=== PATIENT | female | born 1960 | race Two or more races ===

== ENCOUNTER 2019-01-30 14:20 | Emergency (ER) | payer MEDICAID, OTHER ==
[~2019-01-30] VITALS: Ht 152.4 cm; Wt 64.4 kg
[2019-01-30 15:12] LABS: Basophils # (auto) 0.1 uL; Basophils % (auto) 1.7 % (0.0-2.0); Eosinophils # (auto) 0.1 uL; Eosinophils % (auto) 1.8 % (0.0-7.0); Hematocrit 43.3 % (36.0-46.0); Hemoglobin 14.3 g/dL (12.2-16.2); Lymphocytes # (auto) 2.3 uL; Lymphocytes % (auto) 34.3 % (10.0-50.0); Mean Corpuscular Hemoglobin 30.7 pg (28.0-32.0); Mean Corpuscular Hgb Conc. 32.9 g/dL (32.0-36.0); Mean Corpuscular Volume 93.4 fL (80.0-100.0); Monocytes # (auto) 0.4 uL; Monocytes % (auto) 5.5 % (0.0-12.0); Neutrophils # (auto) 3.8 uL; Neutrophils % (auto) 56.7 % (37.0-80.0); Nucleated Red Blood Cells % 0.3 %; Platelet Count (auto) 312 10^3/uL (140-450); Red Blood Cells 4.64 10^6/uL (4.0-5.20); Red Cell Distribution Width 14.6 % (11.8-14.3); White Blood Cell 6.8 10^3/uL (4.4-10.8)
[2019-01-30 15:14] LABS: Urine Bacteria NONE SEEN /hpf (None Seen); Urine Blood TRACE /uL (Negative); Urine Mucus FEW (None Seen); Urine Specific Gravity 1.018 (1.001-1.035); Urine WBC 1 /hpf (0 - 5)
[2019-01-30 15:28] LABS: Albumin 4.3 g/dL (3.4-5.0); Anion Gap 6 (5-15); Blood Urea Nitrogen 10 mg/dL (7-18); Calcium 9.2 mg/dL (8.5-10.1); Carbon Dioxide 26 mmol/L (21-32); Chloride 110 mmol/L (98-107); Glucose 94 mg/dL (74-106); Potassium 4.4 mmol/L (3.5-5.1); Sodium 142 mmol/L (136-145)
[2019-01-30 15:34] LABS: Alanine Aminotransferase 48 U/L (13-56); Alkaline Phosphatase 50 U/L (45-117); Aspartate Aminotransferase 27 U/L (15-37); BUN/Creatinine Ratio 16.1; Bilirubin, Total 0.2 mg/dL (0.2-1.0); GFR African American 127 mL/min; GFR Non-African American 105 mL/min; Total Protein 8.3 g/dL (6.4-8.2)
[2019-01-30] MEDS ORDERED: MECLIZINE HCL 25 MG TAB PO ONE (15:45)
[2019-01-30 17:03] VITALS: BP 124/75
== END 2019-01-30 17:10 | disposition home or self-care (01) ==
LOC: ER 14:28
DX: I10 Essential (primary) hypertension (principal); Z98.51 Tubal ligation status
CPT/HCPCS: 36415; 71046; 80053; 81001; 83735; 84443; 84484; 85025; 93005; 99284; J8597

== ENCOUNTER 2020-06-02 11:32 | Emergency (ER) | payer MEDICAID ==
[~2020-06-02] VITALS: Ht 152.4 cm; Wt 69.4 kg
[2020-06-02 11:49] VITALS: BP 140/79
[2020-06-02] MEDS ORDERED: PANTOPRAZOLE 40 MG/10 ML VIAL INJ IV STA (11:49)
[2020-06-02] MEDS ORDERED: SODIUM CHLORIDE 0.9% 500 ML IVB ONE (11:49)
[2020-06-02] MEDS ORDERED: MORPHINE SULF INJ 2 MG/ML SYRINGE 1ML IV ONE (12:00)
[2020-06-02] MEDS ORDERED: ONDANSETRON HCL 4 MG/2 ML VIAL IV ONE (12:00)
[2020-06-02 12:21] LABS: Basophils # (auto) 0 10 ^3/uL (0-0.2); Basophils % (auto) 0.6 % (0.0-2.0); Eosinophils # (auto) 0.1 10 ^3/uL (0-0.8); Hematocrit 40.5 % (36.0-46.0); Hemoglobin 13.6 g/dL (12.2-16.2); Lymphocytes # (auto) 1.4 10 ^3/uL (0.4-5.4); Lymphocytes % (auto) 19.5 % (10.0-50.0); Mean Corpuscular Hemoglobin 30.9 pg (28.0-32.0); Mean Corpuscular Hgb Conc. 33.5 g/dL (32.0-36.0); Mean Corpuscular Volume 92.1 fL (80.0-100.0); Monocytes # (auto) 0.3 10 ^3/uL (0-1.3); Monocytes % (auto) 4.4 % (0.0-12.0); Neutrophils # (auto) 5.4 10 ^3/uL (1.6-8.6); Neutrophils % (auto) 74.5 % (37.0-80.0); Nucleated Red Blood Cells % 0.1 %; Platelet Count (auto) 267 10^3/uL (140-450); Red Blood Cells 4.39 10^6/uL (4.0-5.20); Red Cell Distribution Width 15.2 % (11.8-14.3); White Blood Cell 7.3 10^3/uL (4.4-10.8)
[2020-06-02 12:37] LABS: Albumin 4.1 g/dL (3.4-5.0); Amylase 38 U/L (25-115); Anion Gap 5 (5-15); Carbon Dioxide 28 mmol/L (21-32); Chloride 104 mmol/L (98-107); Potassium 3.7 mmol/L (3.5-5.1); Sodium 137 mmol/L (136-145)
[2020-06-02 12:44] LABS: Alanine Aminotransferase 34 U/L (13-56); Alkaline Phosphatase 40 U/L (45-117); Aspartate Aminotransferase 20 U/L (15-37); BUN/Creatinine Ratio 16.4; Bilirubin, Total 0.3 mg/dL (0.2-1.0); Blood Urea Nitrogen 12 mg/dL (7-18); GFR African American 105 mL/min; GFR Non-African American 86 mL/min; Glucose 135 mg/dL (74-106); Lipase 105 U/L (73-393); Total Protein 7.8 g/dL (6.4-8.2)
[2020-06-02 16:36] LABS: Urine Bacteria NONE SEEN /hpf (None Seen); Urine Blood Negative /uL (Negative); Urine Mucus FEW (None Seen); Urine Specific Gravity 1.019 (1.001-1.035); Urine WBC 1 /hpf (0 - 5)
[2020-06-02] MEDS ORDERED: HYDROcodone-ACET 5/325MG TAB ONE (20:10)
[2020-06-02] MEDS ORDERED: ONDANSETRON ODT 4 MG TAB PO ONE ×2 (20:10→20:30)
[2020-06-02] MEDS ORDERED: PANTOPRAZOLE 40 MG TAB PO ONE ×2 (20:11→20:30)
[2020-06-02] MEDS ORDERED: HYDROcodone-ACET 5/325MG TAB PO ONE (20:30)
== END 2020-06-02 20:25 | disposition home or self-care (01) ==
LOC: ER 11:32
DX: N20.0 Calculus of kidney (principal)
CPT/HCPCS: 36415; 74176; 80053; 81001; 82150; 83690; 84484; 85025; 93005; 99285; Q0162

== ENCOUNTER 2025-01-21 04:54 | Inpatient (IN) | payer OTHER, MEDICAID ==
[~2025-01-21] VITALS: Ht 152.4 cm; Wt 69.0 kg
--- NOTE | 2025-01-21 05:19 | ED.PDOC ---
GI ASSESSMENT HPI Comments 64-year-old female presents in the ED chief complaint abdominal pain. Patient was states pain started two days ago at night after eating dinner she describes pain as sharp and squeezing in nature mid and right lower abdomen 9/10 on pain scale. Related symptoms of nausea and fevers. Patient states she took Tylenol [id number] with relief in fever but not pain. 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 Family History Family History: Family hx of Cancer Social History Smoker: Non-Smoker Alcohol: Denies ETOH Use Drugs: Denies Drug Use Lives In: Home Constitutional: reports: fever; denies: chills, diaphoresis, fatigue, malaise, sweats, weakness, others EENTM: denies: blurred vision, double vision, ear bleeding, ear discharge, ear drainage, ear pain, ear ringing, eye pain, eye redness, hearing loss, mouth pain, mouth swelling, nasal discharge, nose bleeding, nose congestion, nose pain, photophobia, tearing, throat pain, throat swelling, voice changes, others Respiratory: denies: cough, hemoptysis, orthopnea, SOB at rest, shortness of breath, SOB with excertion, stridor, wheezing, others Cardiovascular: denies: chest pain, dizzy spells, diaphoresis, Dyspnea on exertion, edema, irregular heart beat, left arm pain, lightheadedness, palpitations, PND, syncope, others Gastrointestinal: reports: abdominal pain, nausea; denies: abdomen distended, blood streaked bowels, constipated, diarrhea, dysphagia, difficulty swallowing, hematemesis, melena, poor appetite, poor fluid intake, rectal bleeding, rectal pain, vomiting, others Genitourinary: denies: abnormal vagina bleeding, burning, dyspareunia, dysuria, flank pain, frequency, hematuria, incontinence, pain, , vagina discharge, urgency, others Neurological: denies: dizziness, fainting, headache, left sided numbness, left sided weakness, numbness, paresthesia, pre-existing deficit, right sided numbness, right sided weakness, seizure, speech problems, tingling, tremors, weakness, others Musculoskeletal: denies: back pain, gout, joint pain, joint swelling, muscle pain, muscle stiffness, neck pain, others Integumetry: denies: bruises, change in color, change in hair/nails, dryness, laceration, lesions, lumps, rash, wounds, others Allergic/Immunocompromised: denies: Difficulty Healing, Frequent Infections, Hives, Itching, others Hematologic/Lymphatic: denies: anemia, blood clots, easy bleeding, easy bruising, swollen glands, others Endocrine: denies: excessive hunger, excessive sweating, excessive thirst, excessive urination, flushing, intolerance to cold, intolerance to heat, unexplained weight gain, unexplained weight loss, others Psychiatric: denies: anxiety, bipolar disorder, depression, hopeless, panic disorder, schizophrenia, sleepless, suicidal, others Physical Exam General Appearance: No Apparent Distress, Normal HEENT: Normal ENT Inspection, Pharynx Normal, TMs Normal Neck: Full Range of Motion, Non-Tender Respiratory: Lungs Clear, No Respiratory Distress, Normal Breath Sounds Cardiovascular: No Edema, No JVD, No Murmur, No Gallop, Normal Peripheral Pulses, Regular Rate/Rhythm Breast Exam: Deferred Gastrointestinal: No Organomegaly, No Pulsatile Mass, Normal Bowel Sounds, Soft, Tenderness (Moderate tenderness palpated over right in mid lower quadrant without rebound tenderness. No guarding) Genitalia: Deferred Pelvic: Deferred Rectal: Deferred Extremities: No calf tenderness, Normal capillary refill, Normal inspection, Normal range of motion, Non-tender, No pedal edema Musculoskeletal : Apperance: Normal Neurologic: Alert, transport rn II-XII nml as Tested, No Motor Deficits, Normal Affect, Normal Mood, No Sensory Deficits Cerebellar Function: Normal Reflexes: Normal Skin: Dry, Normal Color, Warm Lymphatic: No Adenopathy Was a procedure done? Was a procedure done?: No GI differential Dx Differential Diagnosis: Bowel Obstruction, Cholangitis, Cholecystitis, Constipation, Gastritis/PUD, Gastroenteritis, Ischemic Bowel, UTI X-Ray, Labs, Meds, VS Vital Signs Date Time Temp Pulse Resp B/P (MAP) Pulse Ox O2 Delivery O2 Flow Rate FiO2 01/21/25 08:22 98.1 86 18 144/73 (96) 94 98.1 01/21/25 08:22 86 18 94 Room Air* 0 01/21/25 08:15 98.9 85 18 126/81 (96) 95 98.9 01/21/25 06:49 86 16 127/80 01/21/25 06:15 91 15 95 Room Air* 0 21 01/21/25 06:15 98.4 95 15 129/78 (95) 95 98.4 01/21/25 05:54 76 17 187/77 01/21/25 05:21 98.4 91 16 129/78 (95) 95 98.4 Lab Test 01/21/25 05:31 01/21/25 05:00 Range/Units White Blood Count 15.7 H 4.4-10.8 10^3/uL Red Blood Count 4.46 4.0-5.20 10^6/uL Hemoglobin 13.7 12.2-16.2 g/dL Hematocrit 40.7 36.0-46.0 % Mean Corpuscular Volume 91.3 80.0-100.0 fL Mean Corpuscular Hemoglobin 30.6 28.0-32.0 pg Mean Corpuscular Hemoglobin Concent 33.6 32.0-36.0 g/dL Red Cell Distribution Width 15.4 H 11.8-14.3 % Platelet Count 263 140-450 10^3/uL Mean Platelet Volume 8.8 6.9-10.8 fL Neutrophils (%) (Auto) 83.7 H 37.0-80.0 % Lymphocytes (%) (Auto) 12.4 10.0-50.0 % Monocytes (%) (Auto) 3.5 0.0-12.0 % Eosinophils (%) (Auto) 0.1 0.0-7.0 % Basophils (%) (Auto) 0.3 0.0-2.0 % Neutrophils # (Auto) 13.1 H 1.6-8.6 10 ^3/uL Lymphocytes # (Auto) 1.9 0.4-5.4 10 ^3/uL Monocytes # (Auto) 0.5 0-1.3 10 ^3/uL Eosinophils # (Auto) 0 0-0.8 10 ^3/uL Basophils # (Auto) 0 0-0.2 10 ^3/uL Nucleated Red Blood Cells 0.0 % Erythrocyte Sedimentation Rate 54 H 0-20 mm/hr Sodium Level 137 136-145 mmol/L Potassium Level 3.7 3.5-5.1 mmol/L Chloride Level 102 98-107 mmol/L Carbon Dioxide Level 26 20-31 mmol/L Anion Gap 9 5-15 Blood Urea Nitrogen 9 9-23 mg/dL Creatinine 0.80 0.550-1.02 mg/dL Glomerular Filtration Rate Calc 82 >90 mL/min BUN/Creatinine Ratio 11.3 10.0-20.0 Serum Glucose 198 H 74-106 mg/dL Hemoglobin A1c 7.7 H <5.7 % A1C Calcium Level 9.9 8.7-10.4 mg/dL Total Bilirubin 0.9 0.2-1.0 mg/dL Aspartate Amino Transferase (AST) 24 13-40 U/L Alanine Aminotransferase (ALT) 26 7-40 U/L Alkaline Phosphatase 48 46-116 U/L Total Protein 7.7 5.7-8.2 g/dL Albumin 5.0 H 3.2-4.8 g/dL Lipase 32 12-53 U/L Carcinoembryonic Antigen 0.80 <=5.0 ng/mL Urine Color Light-orange Yellow Urine Clarity Clear Clear Urine pH 5.5 5.0-9.0 Urine Specific [place] 1.034 1.001-1.035 Urine Protein 1+ H Negative Urine Ketones 2+ H Negative Urine Blood 1+ H Negative /uL Urine Nitrite Negative Negative Urine Bilirubin Negative Negative Urine Urobilinogen 2 H Negative mg/dL Urine Leukocyte Esterase 1+ Negative /uL Urine RBC 11 0 - 4 /hpf Urine Microscopic WBC 9 H 0-5 /HPF Urine Squamous Epithelial Cells Few <5 /hpf Urine Bacteria None seen None Seen /hpf Urine Mucus Few None Seen Urine Glucose Trace Normal mg/dL Current Medications Medications (Trade) Dose Ordered Sig/Theodore Route Start Time Stop Time Status Last Admin Sodium Chloride 1,000 ml @ 150 mls/hr Q6H40M ONCE IV 01/21/25 05:15 01/21/25 11:54 DC 01/21/25 05:56 Morphine Sulfate 1 mg ONCE ONCE IV 01/21/25 05:15 01/21/25 05:16 DC 01/21/25 05:54 Cefepime HCl 50 ml @ 12.5 mls/hr ONCE ONCE IV 01/21/25 06:30 01/21/25 10:29 DC 01/21/25 07:29 Metronidazole 100 ml @ 100 mls/hr ONCE ONCE IV 01/21/25 06:30 01/21/25 07:29 DC 01/21/25 06:28 Sodium Chloride 1,000 ml @ 1,000 mls/hr Q1H ONCE IV 01/21/25 06:30 01/21/25 07:29 DC 01/21/25 06:26 Ondansetron HCl (Zofran) 4 mg ONCE ONCE IV 01/21/25 06:30 01/21/25 06:31 DC 01/21/25 06:53 X-Ray, Labs, Meds, VS Comment IMAGING: CT ABDOMEN 1. Significant fat stranding and wall thickening of the terminal ileum suggesting terminal ileitis. Underlying mass can not be excluded. The appendix contains air and measures up to 5 mm in diameter. 2. Hepatomegaly with fatty infiltration. LABS: CBC CMP LIPASE UA MEDICATIONS: MORPHINE 1 MG IV PUSH PLAN: PATIENT TO BE ADMITTED FOR TERMINAL ILEITIS. PATIENT PLACED FOR HOSPITALIST, RECOMMEND GI CONSULT, UNDERLYING MASS CAN NOT BE EXCLUDED UNDER CT. Time of 1ST Reevaluation: 05:16 Reevaluation 1ST: Unchanged Patient Education/Counseling: Diagnosis, Treatment, Prognosis, Need For Follow Up Family Education/Counseling: No Family Present Departure 1 Departure Time of Disposition: 06:04 Impression: Primary Impression: Terminal ileitis of small intestine Qualified Codes: K50.00 - Crohn's disease of small intestine without complications Disposition: ADMITTED INPATIENT Condition: Stable Discharged With: Self Critical Care Note Critical Care Time?: No Stability Stability form required: SUE Shell Jan 21, 2025 05:19
[2025-01-21 05:28] LABS: Urine Bacteria None Seen /hpf (None Seen)
[2025-01-21 05:49] LABS: Urine Blood 1+ /uL (Negative); Urine Clarity Clear (Clear); Urine Color Light-Orange (Yellow); Urine Mucus FEW (None Seen); Urine Protein, UAD 1+ (Negative); Urine Specific Gravity 1.034 (1.001-1.035); Urine Squamous Epithelial Cell FEW /hpf (<5); Urine Urobilinogen 2 mg/dL (Negative); Urine WBC 9 /HPF (0-5); Urine pH 5.5 (5.0-9.0)
[2025-01-21] MEDS: MORPHINE SULFATE INJ 2 MG/ml SYRG IV ONE (05:54)
[2025-01-21] MEDS: SODIUM CHLORIDE 0.9% 1,000 ML IV ONE ×2 (05:56→06:26)
--- NOTE | 2025-01-21 05:56 | DVH ---
EXAM: CT Abdomen and Pelvis Without Intravenous Contrast CLINICAL INDICATION: rlq pain TECHNIQUE: Axial computed tomography images of the abdomen and pelvis without intravenous contrast. This CT exam was performed using one or more of the following dose reduction techniques: automated exposure control, adjustment of the mA and/or kV according to patient size, and/or use of iterative r econstruction technique. CONTRAST: COMPARISON: CT ABD PELVIS WO CONTRAST on DOS: 06/02/20 FINDINGS: LUNG BASES: Unremarkable. No mass. No consolidation. ABDOMEN: LIVER: Hepatomegaly with fatty infiltration. GALLBLADDER AND BILE DUCTS: Unremarkable. No calcified stones. No ductal dilation. PANCREAS: Unremarkable. No ductal dilation. SPLEEN: Unremarkable. No splenomegaly. ADRENALS: Unremarkable. No mass. KIDNEYS AND URETERS: Right nephrolithiasis without hydronephrosis. STOMACH AND BOWEL: Significant fat stranding and wall thickening of the terminal ileum suggesting t erminal ileitis. Underlying mass can not be excluded. The appendix contains air and measures up to 5 mm in diameter. No obstruction. PELVIS: APPENDIX: See above. BLADDER: Unremarkable. No stones. REPRODUCTIVE: Unremarkable as visualized. ABDOMEN and PELVIS: INTRAPERITONEAL SPACE: Unremarkable. No free air. No significant fluid collection. BONES/JOINTS: No acute fracture. No dislocation. SOFT TISSUES: Unremarkable. VASCULATURE: Unremarkable. No abdominal aortic aneurysm. LYMPH NODES: Unremarkable. No enlarged lymph nodes. OTHER FINDINGS: . IMPRESSION: 1. Significant fat stranding and wall thickening of the terminal ileum suggesting terminal ileitis. Underlying mass can not be excluded. The appendix contains air and measures up to 5 mm in diameter. 2. Hepatomegaly with fatty infiltration.
[2025-01-21 06:13] LABS: Basophils # (auto) 0 10 ^3/uL (0-0.2); Basophils % (auto) 0.3 % (0.0-2.0); Eosinophils # (auto) 0 10 ^3/uL (0-0.8); Eosinophils % (auto) 0.1 % (0.0-7.0); Hematocrit 40.7 % (36.0-46.0); Hemoglobin 13.7 g/dL (12.2-16.2); Lymphocytes # (auto) 1.9 10 ^3/uL (0.4-5.4); Lymphocytes % (auto) 12.4 % (10.0-50.0); Mean Corpuscular Hemoglobin 30.6 pg (28.0-32.0); Mean Corpuscular Hgb Conc. 33.6 g/dL (32.0-36.0); Mean Corpuscular Volume 91.3 fL (80.0-100.0); Monocytes # (auto) 0.5 10 ^3/uL (0-1.3); Monocytes % (auto) 3.5 % (0.0-12.0); Neutrophils # (auto) 13.1 10 ^3/uL (1.6-8.6); Neutrophils % (auto) 83.7 % (37.0-80.0); Platelet Count (auto) 263 10^3/uL (140-450); Red Blood Cells 4.46 10^6/uL (4.0-5.20); Red Cell Distribution Width 15.4 % (11.8-14.3); White Blood Cell 15.7 10^3/uL (4.4-10.8)
[2025-01-21 06:15] VITALS: PULSE 91; RESP 15; O2SAT 95
[2025-01-21] MEDS: metroNIDAZOLE 500MG/100ML 100 ML IV ONE (06:28)
[2025-01-21 06:35] LABS: Alanine Aminotransferase 26 U/L (7-40); Alkaline Phosphatase 48 U/L (46-116); Anion Gap 9 (5-15); Aspartate Aminotransferase 24 U/L (13-40); BUN/Creatinine Ratio 11.3 (10.0-20.0); Blood Urea Nitrogen 9 mg/dL (9-23); Calcium 9.9 mg/dL (8.7-10.4); Carbon Dioxide 26 mmol/L (20-31); Chloride 102 mmol/L (98-107); Lipase 32 U/L (12-53); Potassium 3.7 mmol/L (3.5-5.1); Sodium 137 mmol/L (136-145); Total Protein 7.7 g/dL (5.7-8.2)
[2025-01-21 06:36] LABS: Bilirubin, Total 0.9 mg/dL (0.2-1.0)
[2025-01-21 06:37] LABS: Glucose 198 mg/dL (74-106)
[2025-01-21] MEDS: ONDANSETRON HCL 4 MG/2 ML VIAL IV ONE (06:53)
[2025-01-21] MEDS: CEFEPIME 2GM/50ML NS 50 ML IV ONE (07:29)
[2025-01-21 08:22] VITALS: PULSE 86; RESP 18; O2SAT 94
[2025-01-21] MEDS ORDERED: DEXTROSE (50%) 50ML SYRG IV PRN (09:45)
[2025-01-21] MEDS: cefTRIAXone 1GM/50ML D5W 50 ML IV SCH (09:45)
[2025-01-21] MEDS: ENOXAPARIN SOD 30 MG/0.3 ML SYRINGE SC SCH (10:00)
--- NOTE | 2025-01-21 10:31 | DVHHP2 ---
History of Present Illness Reason for Visit: Abdominal pain History of Present Illness Jovon Higgins is a 64-year-old female with past medical history of bilateral tubal ligation and right wrist tendon repair who presents to the ED with abdominal pain, nausea, and fever x2 days. Patient reports the pain is of 9/10 cramping and constant. Patient denies chest pain, sob, chills, recent sick contacts, recent trauma and injury, vomiting, and diarrhea. Daughter Mirella at bedside and discussed plan of care with her. Past Surgical History: Other (Right wrist tendon repair), Tubal Ligation Family History: Other (Grandmother with breast cancer) Smoke: No ALCOHOL: none Drugs: None Lives: with Family Domestic Violence: Neg Review of Systems Constitutional: Yes: Fever Gastrointestinal: Nausea, Abdominal Pain Allergies: Coded Allergies: NO KNOWN ALLERGIES (Unverified , 01/30/19) Medications Current Medications Medications Dose Ordered Sig/Theodore Route Start Time Stop Time Status Last Admin Dose Admin Acetaminophen/ Hydrocodone Bitart 1 tab Q4HP PRN PO 01/21/25 09:45 UNV Exam Vital Signs Vital Signs Date Time Temp Pulse Resp B/P (MAP) Pulse Ox O2 Delivery O2 Flow Rate FiO2 01/21/25 08:22 98.1 86 18 144/73 (96) 94 98.1 01/21/25 08:22 Room Air* 0 21 General Appearance: Alert, Oriented X3, Cooperative, No acute distress HEENT: Atraumatic, PERRLA, EOMI, Mucous membr. moist/pink Respiratory: Clear to auscultation, Normal air movement Cardiovascular: Regular rate, Normal S1, Normal S2, No murmurs Abdominal: Soft Extremities: No clubbing, No cyanosis, No edema, Normal pulses, No tenderness /swelling Skin: No rashes, No breakdown, No significant lesion Neuro: Normal speech, Strength at 5/5 X4 ext, Normal tone, Sensation intact Psych/Mental Status: Mental status NL, Mood NL Labs/Xrays Labs Test 01/21/25 05:31 01/21/25 05:00 Range/Units White Blood Count 15.7 H 4.4-10.8 10^3/uL Red Blood Count 4.46 4.0-5.20 10^6/uL Hemoglobin 13.7 12.2-16.2 g/dL Hematocrit 40.7 36.0-46.0 % Mean Corpuscular Volume 91.3 80.0-100.0 fL Mean Corpuscular Hemoglobin 30.6 28.0-32.0 pg Mean Corpuscular Hemoglobin Concent 33.6 32.0-36.0 g/dL Red Cell Distribution Width 15.4 H 11.8-14.3 % Platelet Count 263 140-450 10^3/uL Mean Platelet Volume 8.8 6.9-10.8 fL Neutrophils (%) (Auto) 83.7 H 37.0-80.0 % Lymphocytes (%) (Auto) 12.4 10.0-50.0 % Monocytes (%) (Auto) 3.5 0.0-12.0 % Eosinophils (%) (Auto) 0.1 0.0-7.0 % Basophils (%) (Auto) 0.3 0.0-2.0 % Neutrophils # (Auto) 13.1 H 1.6-8.6 10 ^3/uL Lymphocytes # (Auto) 1.9 0.4-5.4 10 ^3/uL Monocytes # (Auto) 0.5 0-1.3 10 ^3/uL Eosinophils # (Auto) 0 0-0.8 10 ^3/uL Basophils # (Auto) 0 0-0.2 10 ^3/uL Nucleated Red Blood Cells 0.0 % Sodium Level 137 136-145 mmol/L Potassium Level 3.7 3.5-5.1 mmol/L Chloride Level 102 98-107 mmol/L Carbon Dioxide Level 26 20-31 mmol/L Anion Gap 9 5-15 Blood Urea Nitrogen 9 9-23 mg/dL Creatinine 0.80 0.550-1.02 mg/dL Glomerular Filtration Rate Calc 82 >90 mL/min BUN/Creatinine Ratio 11.3 10.0-20.0 Serum Glucose 198 H 74-106 mg/dL Calcium Level 9.9 8.7-10.4 mg/dL Total Bilirubin 0.9 0.2-1.0 mg/dL Aspartate Amino Transferase (AST) 24 13-40 U/L Alanine Aminotransferase (ALT) 26 7-40 U/L Alkaline Phosphatase 48 46-116 U/L Total Protein 7.7 5.7-8.2 g/dL Albumin 5.0 H 3.2-4.8 g/dL Lipase 32 12-53 U/L Urine Color Light-orange Yellow Urine Clarity Clear Clear Urine pH 5.5 5.0-9.0 Urine Specific [place] 1.034 1.001-1.035 Urine Protein 1+ H Negative Urine Ketones 2+ H Negative Urine Blood 1+ H Negative /uL Urine Nitrite Negative Negative Urine Bilirubin Negative Negative Urine Urobilinogen 2 H Negative mg/dL Urine Leukocyte Esterase 1+ Negative /uL Urine RBC 11 0 - 4 /hpf Urine Microscopic WBC 9 H 0-5 /HPF Urine Squamous Epithelial Cells Few <5 /hpf Urine Bacteria None seen None Seen /hpf Urine Mucus Few None Seen Urine Glucose Trace Normal mg/dL EXAM: CT Abdomen and Pelvis Without Intravenous Contrast CLINICAL INDICATION: rlq pain TECHNIQUE: Axial computed tomography images of the abdomen and pelvis without intravenous contrast. This CT exam was performed using one or more of the following dose reduction techniques: automated exposure control, adjustment of the mA and/or kV according to patient size, and/or use of iterative reconstruction technique. CONTRAST: COMPARISON: CT ABD PELVIS WO CONTRAST on DOS: 06/02/20 FINDINGS: LUNG BASES: Unremarkable. No mass. No consolidation. ABDOMEN: LIVER: Hepatomegaly with fatty infiltration. GALLBLADDER AND BILE DUCTS: Unremarkable. No calcified stones. No ductal dilation. PANCREAS: Unremarkable. No ductal dilation. SPLEEN: Unremarkable. No splenomegaly. ADRENALS: Unremarkable. No mass. KIDNEYS AND URETERS: Right nephrolithiasis without hydronephrosis. STOMACH AND BOWEL: Significant fat stranding and wall thickening of the terminal ileum suggesting terminal ileitis. Underlying mass can not be excluded. The appendix contains air and measures up to 5 mm in diameter. No obstruction. PELVIS: APPENDIX: See above. BLADDER: Unremarkable. No stones. REPRODUCTIVE: Unremarkable as visualized. ABDOMEN and PELVIS: INTRAPERITONEAL SPACE: Unremarkable. No free air. No significant fluid collection. BONES/JOINTS: No acute fracture. No dislocation. SOFT TISSUES: Unremarkable. VASCULATURE: Unremarkable. No abdominal aortic aneurysm. LYMPH NODES: Unremarkable. No enlarged lymph nodes. OTHER FINDINGS: . IMPRESSION: 1. Significant fat stranding and wall thickening of the terminal ileum suggesting terminal ileitis. Underlying mass can not be excluded. The appendix contains air and measures up to 5 mm in diameter. 2. Hepatomegaly with fatty infiltration. Assessment/Plan Assessment/Plan Assessment Intractable abdominal pain Leukocytosis likely due to acute cystitis versus ileitis ? Possible ileal mass Hyperglycemia History of bilateral tubal ligation History of right wrist tendon repair Blood Admit to [facility] Antiemetics IV fluids given ED IV antibiotics-Flagyl + cefepime given ED IV antibiotics-ceftriaxone + Zosyn Pain management UA CT abdomen and pelvis Lipase Hemoglobin A1c ISS and Accu-Cheks CEA DVT prophylaxis-Lovenox PUD prophylaxis-not indicated no history of GERD or GI bleed Discussed plan of care with patient, patient's daughter, and nurse Home medications reconciled GI consult Rounding hospitalist decide if oncology warranted pending lab and monitoring symptoms Plan discussed with: Patient, Daughter My Orders Orders - CHRISTIE PINTO Procedure Category Date Status Time Carcinoembryonic LAB 01/21/25 Transmitted Antigen 09:41 Admit ADMIT 01/21/25 Transmitted 09:41 Allergies EMILY 01/21/25 In Process 09:41 Code Status CODE 01/21/25 Transmitted 09:41 Hydrocodone-Acet PHA 01/21/25 Logged 5/325mg Tab ([place] 09:45 Ondansetron Hcl PHA 01/21/25 Logged (Zofran) 09:45 Complete Blood Count LAB 01/22/25 Verified 04:00 Comprehensive LAB 01/22/25 Verified Metabolic Panel 04:00 Cardiac DIET 01/21/25 Transmitted Diet-2gna,Lofat,Lochol Lunch Enoxaparin Sodium PHA 01/21/25 Logged (Lovenox) 10:00 Acetaminophen Tablet PHA 01/21/25 Logged (Tylenol Tablet) 09:45 Morphine Sulfate PHA 01/21/25 Transmitted Injection 09:45 Glucose Blood PHA 01/21/25 Transmitted (Accu-Chek Comfort 11:30 Mild Sliding Scale PHA 01/21/25 Transmitted 11:30 Dextrose 50% Syringe PHA 01/21/25 Transmitted 09:45 Hemoglobin A1c LAB 01/21/25 Transmitted 09:41 Ceftriaxone Ivpb PHA 01/21/25 Transmitted Rocephin 09:45 Zosyn Extended PHA 01/21/25 Transmitted Infusion 09:45 Atorvastatin (Lipitor) PHA 01/21/25 Verified 22:00 Date of Service: Jan 21, 2025 Billing Provider: CHRISTIE PINTO Common Visit Codes: [id number] INP/OBS CARE (HIGH) CHRISTIE PINTO Jan 21, 2025 10:31
[2025-01-21] MEDS: MORPHINE SULFATE INJ 2 MG/ml SYRG IV PRN (11:13)
[2025-01-21] MEDS: ACCU-CHEK COMFORT CURVE STRIP VI SCH (11:30)
[2025-01-21] MEDS: InsuLIN REG 1unit/0.01ml Soln (100units/ml) SC SCH (12:15)
[2025-01-21] MEDS: PIPERACILLIN-TAZOB 3.375GM 100 ML IV SCH (14:14)
[2025-01-21 17:44] LABS: Erythrocyte Sedimentation Rate 54 mm/hr (0-20)
[2025-01-21 18:44] VITALS: BP 135/69; PULSE 92; RESP 18; TEMP 100.5; O2SAT 88; O2SAT 93
[2025-01-21] MEDS: ONDANSETRON HCL 4 MG/2 ML VIAL IV PRN (19:58)
[2025-01-21] MEDS: HYDROcodone-ACET 5/325MG TAB PO PRN (19:59)
[2025-01-21 20:30] VITALS: PULSE 90; RESP 18; O2SAT 92
[2025-01-21] MEDS: ATORVASTATIN 20 MG TAB PO SCH (21:33)
[2025-01-21] MEDS: DOCUSATE SOD 100 MG CAP PO SCH (21:33)
[2025-01-22] VITALS (10 sets, daily range): BP systolic 103–115; BP diastolic 54–62; PULSE 73–90; RESP 18; TEMP 98.6–101.7; O2SAT 90–98
[2025-01-22] MEDS: ACETAMINOPHEN 325 MG TAB PO PRN (04:25)
[2025-01-22 07:09] LABS: Alanine Aminotransferase 29 U/L (7-40); Albumin 4.1 g/dL (3.2-4.8); Alkaline Phosphatase 53 U/L (46-116); Anion Gap 13 (5-15); Calcium 9.2 mg/dL (8.7-10.4); Chloride 101 mmol/L (98-107); Potassium 3.9 mmol/L (3.5-5.1); Total Protein 6.6 g/dL (5.7-8.2)
[2025-01-22 07:17] LABS: Aspartate Aminotransferase 40 U/L (13-40); BUN/Creatinine Ratio 7.4 (10.0-20.0); Blood Urea Nitrogen < 5 mg/dL (9-23); Carbon Dioxide 19 mmol/L (20-31); Glucose 149 mg/dL (74-106); Sodium 133 mmol/L (136-145)
[2025-01-22 07:39] LABS: Basophils # (auto) 0.1 10 ^3/uL (0-0.2); Basophils % (auto) 0.3 % (0.0-2.0); Eosinophils # (auto) 0.1 10 ^3/uL (0-0.8); Eosinophils % (auto) 0.6 % (0.0-7.0); Hematocrit 36.6 % (36.0-46.0); Hemoglobin 11.9 g/dL (12.2-16.2); Lymphocytes # (auto) 1.7 10 ^3/uL (0.4-5.4); Lymphocytes % (auto) 8.9 % (10.0-50.0); Mean Corpuscular Hemoglobin 30.5 pg (28.0-32.0); Mean Corpuscular Hgb Conc. 32.5 g/dL (32.0-36.0); Mean Corpuscular Volume 93.7 fL (80.0-100.0); Monocytes # (auto) 0.7 10 ^3/uL (0-1.3); Monocytes % (auto) 3.5 % (0.0-12.0); Neutrophils # (auto) 16.8 10 ^3/uL (1.6-8.6); Neutrophils % (auto) 86.7 % (37.0-80.0); Nucleated Red Blood Cells % 0.1 %; Platelet Count (auto) 228 10^3/uL (140-450); Red Blood Cells 3.91 10^6/uL (4.0-5.20); Red Cell Distribution Width 15.2 % (11.8-14.3); White Blood Cell 19.4 10^3/uL (4.4-10.8)
[2025-01-22] MEDS ORDERED: cloNIDine HCL 0.1 MG TAB PO PRN (13:45)
--- NOTE | 2025-01-22 14:25 | DVHINCON2 ---
Date of service: Jan 22, 2025 Referring Physician Opal Reason for Consultation Abnormal imaging GI tract Abdominal pain History of Present Illness Patient is a 64-year-old female admitted with abdominal pain. Imaging shows ileitis and/or possible mass. Patient has no significant past medical history. She denies any nausea or vomiting. She denies diarrhea. She denies any fevers or chills. Patient states that the symptoms have lasted for couple of days up to one week. She denies family history of gastrointestinal diseases or malignancies. She denies prior history of colonoscopy. Past Medical History Negative for past medical history Past Surgical History History of tendon repair Family History: FH: uterine cancer Social History No significant tobacco alcohol or recreational drug use Allergies: Coded Allergies: NO KNOWN ALLERGIES (Unverified , 01/30/19) Current Medications Current Medications Medications (Trade) Dose Ordered Sig/Theodore Route PRN Reason Start Time Stop Time Status Last Admin Atorvastatin Calcium (Lipitor) 40 mg HS PO 01/21/25 22:00 01/21/25 21:33 Docusate Sodium (Colace Capsule) 100 mg BID PO 01/21/25 22:00 01/22/25 12:11 Clonidine HCl (Catapres Tablet) 0.1 mg Q6HP PRN PO SBP>150 01/22/25 13:45 UNV Review of Systems 12 point review of systems negative other than HPI Vital Signs Vital Signs Date Time Temp Pulse Resp B/P (MAP) Pulse Ox O2 Delivery O2 Flow Rate FiO2 01/22/25 13:00 100.1 85 18 114/54 (74) 98 100.1 01/22/25 12:04 Nasal Cannula* 4 36 Physical Exam General: Alert and oriented x4 no distress HEENT: NC/AT EOMI PERRLA O/P clear no JVD Heart: Regular rate and rhythm Abdomen: Soft moderate tenderness to palpation, voluntary guarding, no palpable masses Extremity: No clubbing cyanosis or edema Neuro: Cranial nerves 2-12 grossly intact moves all four extremities Labs/Diagnostic Data Labs Test 01/22/25 12:13 01/22/25 04:57 01/21/25 05:31 01/21/25 05:00 Range/Units POC Glucose 196 H 70-106 mg/dl White Blood Count 19.4 H 4.4-10.8 10^3/uL Red Blood Count 3.91 L 4.0-5.20 10^6/uL Hemoglobin 11.9 L 12.2-16.2 g/dL Hematocrit 36.6 # 36.0-46.0 % Mean Corpuscular Volume 93.7 80.0-100.0 fL Mean Corpuscular Hemoglobin 30.5 28.0-32.0 pg Mean Corpuscular Hemoglobin Concent 32.5 32.0-36.0 g/dL Red Cell Distribution Width 15.2 H 11.8-14.3 % Platelet Count 228 140-450 10^3/uL Mean Platelet Volume 9.2 6.9-10.8 fL Neutrophils (%) (Auto) 86.7 H 37.0-80.0 % Lymphocytes (%) (Auto) 8.9 L 10.0-50.0 % Monocytes (%) (Auto) 3.5 0.0-12.0 % Eosinophils (%) (Auto) 0.6 0.0-7.0 % Basophils (%) (Auto) 0.3 0.0-2.0 % Neutrophils # (Auto) 16.8 H 1.6-8.6 10 ^3/uL Lymphocytes # (Auto) 1.7 0.4-5.4 10 ^3/uL Monocytes # (Auto) 0.7 0-1.3 10 ^3/uL Eosinophils # (Auto) 0.1 0-0.8 10 ^3/uL Basophils # (Auto) 0.1 0-0.2 10 ^3/uL Nucleated Red Blood Cells 0.1 % Sodium Level 133 L 136-145 mmol/L Potassium Level 3.9 3.5-5.1 mmol/L Chloride Level 101 98-107 mmol/L Carbon Dioxide Level 19 L 20-31 mmol/L Anion Gap 13 5-15 Blood Urea Nitrogen < 5 L 9-23 mg/dL Creatinine 0.68 0.550-1.02 mg/dL Glomerular Filtration Rate Calc 97 >90 mL/min BUN/Creatinine Ratio 7.4 L 10.0-20.0 Serum Glucose 149 H 74-106 mg/dL Calcium Level 9.2 8.7-10.4 mg/dL Total Bilirubin 1.0 0.2-1.0 mg/dL Aspartate Amino Transferase (AST) 40 13-40 U/L Alanine Aminotransferase (ALT) 29 7-40 U/L Alkaline Phosphatase 53 46-116 U/L Total Protein 6.6 5.7-8.2 g/dL Albumin 4.1 3.2-4.8 g/dL Erythrocyte Sedimentation Rate 54 H 0-20 mm/hr Hemoglobin A1c 7.7 H <5.7 % A1C Lipase 32 12-53 U/L Carcinoembryonic Antigen 0.80 <=5.0 ng/mL Urine Color Light-orange Yellow Urine Clarity Clear Clear Urine pH 5.5 5.0-9.0 Urine Specific [place] 1.034 1.001-1.035 Urine Protein 1+ H Negative Urine Ketones 2+ H Negative Urine Blood 1+ H Negative /uL Urine Nitrite Negative Negative Urine Bilirubin Negative Negative Urine Urobilinogen 2 H Negative mg/dL Urine Leukocyte Esterase 1+ Negative /uL Urine RBC 11 0 - 4 /hpf Urine Microscopic WBC 9 H 0-5 /HPF Urine Squamous Epithelial Cells Few <5 /hpf Urine Bacteria None seen None Seen /hpf Urine Mucus Few None Seen Urine Glucose Trace Normal mg/dL CT scan findings IMPRESSION: 1. Significant fat stranding and wall thickening of the terminal ileum suggesting terminal ileitis. Underlying mass can not be excluded. The appendix contains air and measures up to 5 mm in diameter. 2. Hepatomegaly with fatty infiltration. Assessment 1. Abdominal pain 2. Leukocytosis 3. Fatty liver 4. Ileitis versus ileal mass Problems(with codes): (1) Terminal ileitis of small intestine Plan/Recommendation 1. Clear liquid diet 2. GoLYTELY preparation 3. NPO after midnight 4. Colonoscopy 5. Antibiotics 6. Further recommendations after colonoscopy Plan discussed with: Patient VERONICA POWERS MD Jan 22, 2025 14:25
--- NOTE | 2025-01-22 18:10 | DVHPN2 ---
Subjective I am assuming the care of the patient from today onwards patient is currently on clear liquid diet. Patient was diagnosed with terminal ileitis underlying mass can not be excluded. 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 Medications Current Medications Medications Dose Ordered Sig/Theodore Route Start Time Stop Time Status Last Admin Dose Admin Acetaminophen/ Hydrocodone Bitart 1 tab Q4HP PRN PO 01/21/25 09:45 01/22/25 17:54 1 TAB Ondansetron HCl 4 mg Q4HP PRN IV 01/21/25 09:45 01/21/25 19:58 4 MG Enoxaparin Sodium 30 mg DAILY SC 01/21/25 10:00 01/22/25 12:12 30 MG Acetaminophen 650 mg Q6HP PRN PO 01/21/25 09:45 01/22/25 12:11 650 MG Morphine Sulfate 2 mg Q4HPRN PRN IV 01/21/25 09:45 01/21/25 11:13 2 MG Diagnostic Test (Pha) 1 strip ACHS 01/21/25 11:30 01/22/25 17:00 1 STRIP Insulin Human Regular ACHS SC 01/21/25 11:30 01/22/25 17:58 2 UNITS Dextrose 50 ml UD PRN IV 01/21/25 09:45 Ceftriaxone Sodium 50 ml @ 100 mls/hr DAILY@09 IV 01/21/25 09:45 Hold Piperacillin Sod/ Tazobactam Sod 100 ml @ 25 mls/hr Q8HR IV 01/21/25 14:00 01/22/25 12:49 25 MLS/HR Atorvastatin Calcium 40 mg HS PO 01/21/25 22:00 01/21/25 21:33 40 MG Docusate Sodium 100 mg BID PO 01/21/25 22:00 01/22/25 12:11 100 MG Laboratory Results Laboratory Tests 01/22/25 04:57 Chemistry Test 01/22/25 04:57 Albumin 4.1 g/dL (3.2-4.8) Calcium Level 9.2 mg/dL (8.7-10.4) Total Protein 6.6 g/dL (5.7-8.2) LFT Test 01/22/25 04:57 Alanine Aminotransferase (ALT) 29 U/L (7-40) Alkaline Phosphatase 53 U/L (46-116) Aspartate Amino Transferase (AST) 40 U/L (13-40) Total Bilirubin 1.0 mg/dL (0.2-1.0) Urinalysis Test 01/21/25 05:00 Urine Color Light-orange (Yellow) Urine Clarity Clear (Clear) Urine pH 5.5 (5.0-9.0) Urine Specific [place] 1.034 (1.001-1.035) Urine Protein 1+ (Negative) H Urine Ketones 2+ (Negative) H Urine Blood 1+ /uL (Negative) H Urine Nitrite Negative (Negative) Urine Bilirubin Negative (Negative) Urine Urobilinogen 2 mg/dL (Negative) H Urine Leukocyte Esterase 1+ /uL (Negative) Urine RBC 11 /hpf (0 - 4) Urine Microscopic WBC 9 /HPF (0-5) H Urine Squamous Epithelial Cells Few /hpf (<5) Urine Bacteria None seen /hpf (None Seen) Urine Mucus Few (None Seen) Urine Glucose Trace mg/dL (Normal) Assessment/Plan Assessment/Plan 64-year-old female with a no significant past medical history presented to the hospital with the abdominal pain nausea found to have 1. Abdominal pain with nausea suspect terminal ileitis, underlying mass can not be excluded 2. Leukocytosis secondary to 1. -IV fluids, clear liquid diet, IV antibiotics, GI consultation for colonoscopy. Plan discussed with: Patient, Daughter My Orders Orders - CADE ORANTES MD Procedure Category Date Status Time Clear Liq Diet DIET 01/22/25 Transmitted Dinner Date of Service: Jan 22, 2025 Billing Provider: CADE ORANTES MD Common Visit Codes: [id number] INP/OBS CARE(MOD) CADE ORANTES MD Jan 22, 2025 18:10
[2025-01-23] VITALS (8 sets, daily range): BP systolic 99–128; BP diastolic 49–63; PULSE 69–89; RESP 15–18; TEMP 97.9–99.7; O2SAT 95–100
[2025-01-23] MEDS: GOLYTELY 4L KIT PO ONE (15:31)
--- NOTE | 2025-01-23 15:54 | DVHPN2 ---
Subjective Patient was diagnosed with terminal ileitis underlying mass can not be excluded. Patient is scheduled for colonoscopy tomorrow. 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 Current Medications Medications Dose Ordered Sig/Theodore Route Start Time Stop Time Status Last Admin Dose Admin Acetaminophen/ Hydrocodone Bitart 1 tab Q4HP PRN PO 01/21/25 09:45 01/23/25 06:27 1 TAB Ondansetron HCl 4 mg Q4HP PRN IV 01/21/25 09:45 01/21/25 19:58 4 MG Enoxaparin Sodium 30 mg DAILY SC 01/21/25 10:00 01/23/25 10:51 30 MG Acetaminophen 650 mg Q6HP PRN PO 01/21/25 09:45 01/22/25 12:11 650 MG Morphine Sulfate 2 mg Q4HPRN PRN IV 01/21/25 09:45 01/21/25 11:13 2 MG Diagnostic Test (Pha) 1 strip ACHS 01/21/25 11:30 01/23/25 11:34 1 STRIP Insulin Human Regular ACHS SC 01/21/25 11:30 01/23/25 11:47 3 UNITS Dextrose 50 ml UD PRN IV 01/21/25 09:45 Ceftriaxone Sodium 50 ml @ 100 mls/hr DAILY@09 IV 01/21/25 09:45 Hold Piperacillin Sod/ Tazobactam Sod 100 ml @ 25 mls/hr Q8HR IV 01/21/25 14:00 01/23/25 13:44 25 MLS/HR Atorvastatin Calcium 40 mg HS PO 01/21/25 22:00 01/22/25 22:10 40 MG Docusate Sodium 100 mg BID PO 01/21/25 22:00 01/23/25 10:51 100 MG Laboratory Results Laboratory Tests 01/22/25 04:57 Urinalysis Test 01/21/25 05:00 Urine Color Light-orange (Yellow) Urine Clarity Clear (Clear) Urine pH 5.5 (5.0-9.0) Urine Specific [place] 1.034 (1.001-1.035) Urine Protein 1+ (Negative) H Urine Ketones 2+ (Negative) H Urine Blood 1+ /uL (Negative) H Urine Nitrite Negative (Negative) Urine Bilirubin Negative (Negative) Urine Urobilinogen 2 mg/dL (Negative) H Urine Leukocyte Esterase 1+ /uL (Negative) Urine RBC 11 /hpf (0 - 4) Urine Microscopic WBC 9 /HPF (0-5) H Urine Squamous Epithelial Cells Few /hpf (<5) Urine Bacteria None seen /hpf (None Seen) Urine Mucus Few (None Seen) Urine Glucose Trace mg/dL (Normal) Assessment/Plan Assessment/Plan 64-year-old female with a no significant past medical history presented to the hospital with the abdominal pain nausea found to have 1. Abdominal pain with nausea suspect terminal ileitis, underlying mass can not be excluded 2. Leukocytosis secondary to 1. 3. Diabetes mellitus type 2 -Accu-Cheks AC and HS, low-dose insulin sliding scale -IV fluids, clear liquid diet, GoLYTELY preparation, IV antibiotics, GI consultation for colonoscopy. -NPO after midnight. Plan discussed with: Patient, Daughter My Orders Orders - CADE ORANTES MD Procedure Category Date Status Time Clear Liq Diet DIET 01/22/25 Transmitted Dinner NS PHA 01/23/25 Transmitted 16:00 Date of Service: Jan 23, 2025 Billing Provider: CADE ORANTES MD Common Visit Codes: [id number] INP/OBS CARE(MOD) CADE ORANTES MD Jan 23, 2025 15:54
[2025-01-23] MEDS: SODIUM CHLORIDE 0.9% 1,000 ML IV ONE (16:00)
[2025-01-24] VITALS (10 sets, daily range): BP systolic 100–124; BP diastolic 54–69; PULSE 59–80; RESP 15–21; TEMP 97.8–98.4; O2SAT 92–100
--- NOTE | 2025-01-24 00:02 | ECG ---
[facility] Test Date: 2025-01-23 Test Time: 23:59:56 Pat Name: SAJI DIGGS Department: Room: [facility] B Gender: F Master Machinist: EHSAN : 1960 Requested By: HCRISTIE PINTO Order Number: [id number] Reading MD: Ilir Santana Measurements Intervals [place] Rate: 68 P: 29 UT: 169 QRS: -10 QRSD: 90 T: -13 QT: 423 QTc: 450 Interpretive Statements Sinus rhythm Probable left atrial enlargement RSR' in V1 or V2, right VCD or RVH Borderline T abnormalities, inferior leads Electronically Signed On 01-27-2025 20:21:41 PDT by Ilir Santana Please click the below link to view image of tracing.
[2025-01-24 00:06] LABS: Basophils # (auto) 0 10 ^3/uL (0-0.2); Basophils % (auto) 0.3 % (0.0-2.0); Eosinophils # (auto) 0.1 10 ^3/uL (0-0.8); Eosinophils % (auto) 0.9 % (0.0-7.0); Hematocrit 32.3 % (36.0-46.0); Hemoglobin 10.8 g/dL (12.2-16.2); Lymphocytes # (auto) 1.5 10 ^3/uL (0.4-5.4); Lymphocytes % (auto) 13.4 % (10.0-50.0); Mean Corpuscular Hemoglobin 30.5 pg (28.0-32.0); Mean Corpuscular Hgb Conc. 33.5 g/dL (32.0-36.0); Mean Corpuscular Volume 91.1 fL (80.0-100.0); Monocytes # (auto) 0.6 10 ^3/uL (0-1.3); Monocytes % (auto) 5.5 % (0.0-12.0); Neutrophils # (auto) 9.1 10 ^3/uL (1.6-8.6); Neutrophils % (auto) 79.9 % (37.0-80.0); Platelet Count (auto) 257 10^3/uL (140-450); Red Blood Cells 3.55 10^6/uL (4.0-5.20); Red Cell Distribution Width 14.6 % (11.8-14.3); White Blood Cell 11.4 10^3/uL (4.4-10.8)
[2025-01-24 00:25] LABS: Albumin 4.2 g/dL (3.2-4.8); Alkaline Phosphatase 87 U/L (46-116); Anion Gap 8 (5-15); Bilirubin, Total 0.4 mg/dL (0.2-1.0); Calcium 9.6 mg/dL (8.7-10.4); Chloride 101 mmol/L (98-107); Sodium 140 mmol/L (136-145); Total Protein 6.8 g/dL (5.7-8.2)
[2025-01-24 00:26] LABS: INR 0.98 (0.9-1.15); Partial Thromboplastin Time 30.2 SEC (24.5-34.5); Prothrombin Time 10.4 sec (9.3-11.8)
[2025-01-24 00:29] LABS: Alanine Aminotransferase 44 U/L (7-40); Aspartate Aminotransferase 50 U/L (13-40); BUN/Creatinine Ratio 7.8 (10.0-20.0); Blood Urea Nitrogen < 5 mg/dL (9-23); Carbon Dioxide 31 mmol/L (20-31); Glucose 147 mg/dL (74-106); Potassium 3.3 mmol/L (3.5-5.1)
--- NOTE | 2025-01-24 06:42 | DVH ---
EXAM: XR Chest, 1 View CLINICAL INDICATION: procedure TECHNIQUE: Frontal view of the chest. COMPARISON: None FINDINGS: LUNGS AND PLEURAL SPACES: See below. HEART: Cardiomegaly with mild congestion. MEDIASTINUM: Unremarkable. Normal mediastinal contour. BONES/JOINTS: Unremarkable. No acute fracture. OTHER FINDINGS: . IMPRESSION: Cardiomegaly with mild congestion.
--- NOTE | 2025-01-24 09:57 | DVHPN2 ---
Subjective The patient seen and examined at bedside. No complaint today. Reviewed: Care Plan Changes from previous H/P or p: No Changes Gastrointestinal: Nausea, Abdominal Pain Objective Vitals Vital Signs Date Time Temp Pulse Resp B/P (MAP) Pulse Ox O2 Delivery O2 Flow Rate FiO2 01/24/25 09:00 98.1 66 15 122/65 (84) 98 98.1 01/24/25 08:00 Nasal Cannula* 4 36 Intake/Output Intake and Output 01/24/25 07:00 Intake Total 1800 ml Balance 1800 ml Intake Oral 1700 ml IV Total 100 ml # Voids 22 # Bowel Movements 2 General Appearance: Alert, Oriented X3, Cooperative, No acute distress HEENT: Atraumatic, PERRLA, EOMI, Mucous membr. moist/pink Lungs: Clear to auscultation, Normal air movement Cardiovascular: Regular rate, Normal S1, Normal S2, No murmurs, Gallops, Rubs (To) Neuro: Cranial nerves 3-12 NL Psych/Mental Status: Mental status NL Medications Current Medications Medications Dose Ordered Sig/Theodore Route Start Time Stop Time Status Last Admin Dose Admin Acetaminophen/ Hydrocodone Bitart 1 tab Q4HP PRN PO 01/21/25 09:45 01/23/25 21:51 1 TAB Ondansetron HCl 4 mg Q4HP PRN IV 01/21/25 09:45 01/21/25 19:58 4 MG Enoxaparin Sodium 30 mg DAILY SC 01/21/25 10:00 01/23/25 10:51 30 MG Acetaminophen 650 mg Q6HP PRN PO 01/21/25 09:45 01/22/25 12:11 650 MG Morphine Sulfate 2 mg Q4HPRN PRN IV 01/21/25 09:45 01/21/25 11:13 2 MG Diagnostic Test (Pha) 1 strip ACHS 01/21/25 11:30 01/24/25 06:13 1 STRIP Insulin Human Regular ACHS SC 01/21/25 11:30 01/24/25 06:13 2 UNITS Dextrose 50 ml UD PRN IV 01/21/25 09:45 Ceftriaxone Sodium 50 ml @ 100 mls/hr DAILY@09 IV 01/21/25 09:45 Hold Piperacillin Sod/ Tazobactam Sod 100 ml @ 25 mls/hr Q8HR IV 01/21/25 14:00 01/24/25 06:13 25 MLS/HR Atorvastatin Calcium 40 mg HS PO 01/21/25 22:00 01/23/25 21:51 40 MG Docusate Sodium 100 mg BID PO 01/21/25 22:00 01/23/25 21:51 100 MG Laboratory Results Laboratory Tests 01/23/25 23:50 Chemistry Test 01/23/25 23:50 Albumin 4.2 g/dL (3.2-4.8) Calcium Level 9.6 mg/dL (8.7-10.4) Total Protein 6.8 g/dL (5.7-8.2) Coagulation Test 01/23/25 23:50 Prothrombin Time 10.4 sec (9.3-11.8) Prothrombin Time INR 0.98 (0.9-1.15) Activated Partial Thromboplast Time 30.2 SEC (24.5-34.5) LFT Test 01/23/25 23:50 Alanine Aminotransferase (ALT) 44 U/L (7-40) H Alkaline Phosphatase 87 U/L (46-116) Aspartate Amino Transferase (AST) 50 U/L (13-40) H Total Bilirubin 0.4 mg/dL (0.2-1.0) Urinalysis Test 01/21/25 05:00 Urine Color Light-orange (Yellow) Urine Clarity Clear (Clear) Urine pH 5.5 (5.0-9.0) Urine Specific [place] 1.034 (1.001-1.035) Urine Protein 1+ (Negative) H Urine Ketones 2+ (Negative) H Urine Blood 1+ /uL (Negative) H Urine Nitrite Negative (Negative) Urine Bilirubin Negative (Negative) Urine Urobilinogen 2 mg/dL (Negative) H Urine Leukocyte Esterase 1+ /uL (Negative) Urine RBC 11 /hpf (0 - 4) Urine Microscopic WBC 9 /HPF (0-5) H Urine Squamous Epithelial Cells Few /hpf (<5) Urine Bacteria None seen /hpf (None Seen) Urine Mucus Few (None Seen) Urine Glucose Trace mg/dL (Normal) Assessment/Plan Assessment/Plan Assessment/Plan 64-year-old female with a no significant past medical history presented to the hospital with the abdominal pain nausea found to have 1. Abdominal pain with nausea suspect terminal ileitis, underlying mass can not be excluded 2. Leukocytosis secondary to 1. 3. Diabetes mellitus type 2 -Accu-Cheks AC and HS, low-dose insulin sliding scale -IV fluids, clear liquid diet, GoLYTELY preparation, IV antibiotics, GI consultation for colonoscopy. -NPO after midnight. Continuing current management. Waiting for procedure to be done today. Explained to the sister was at bedside regarding to plan. This medical document was created using an electronic medical record system with [employer]rency direct computerized dictation system. Although this document has been carefully reviewed, there may still be some phonetic and typographical errors. These areas are purely typographical due to imperfections of the software programs, and do not reflect any compromise in the patient's medical care. Plan discussed with: Patient Date of Service: Jan 24, 2025 Billing Provider: DAKOTA ALEJANDRO MD Common Visit Codes: [id number] INP/OBS CARE(HIGH) DAKOTA ALEJANDRO MD Jan 24, 2025 09:57
[2025-01-24] MEDS ORDERED: SODIUM CHLORIDE LOCK 10 ML ONE (11:41)
[2025-01-24] MEDS ORDERED: NALOXONE HCL 0.4 MG/ML VIAL ONE (11:41)
[2025-01-24] MEDS ORDERED: FLUMAZENIL 0.1 MG/ML INJ 10ML MDV IV ONE (11:41)
[2025-01-24] MEDS: fentaNYL CITRATE 100 MCG/2 ML VL ONE (13:38)
[2025-01-24] MEDS: MIDAZOLAM HCL 5 MG/ML-1ML VIAL ONE (13:38)
[2025-01-24] MEDS: diphenhdrAMINE HCL 50 MG/1 ML VL ONE (13:38)
--- NOTE | 2025-01-24 14:02 | DVHOP2 ---
Operative Report DATE OF OPERATION: 01/24/25 PROCEDURE: Colonoscopy with cold biopsy. PREOPERATIVE INDICATION: The patient is a 64 -year-old female undergoing colonoscopy for evaluation of abnormal finding GI tract imaging suspected ileitis and abdominal pain POSTOPERATIVE DIAGNOSES: 1. Trace internal hemorrhoids otherwise essentially completely normal colonoscopy examination up to the terminal ileum 2. There was minimal ascending colon mucosal edema and terminal ileum and ascending colon biopsies were obtained PROCEDURE PERFORMED BY: Jorgito Molina M.D. SCOPE: Olympus videocolonoscope. ASA CLASS: 2. PREOPERATIVE MEDICATIONS: Versed 3 mg, Fentanyl 75 mcg, Benadryl 50 mg PROCEDURE IN DETAIL: After obtaining an informed consent, the patient was placed on left lateral decubitus position. She was then sedated with the above medications. A rectal examination was performed that was normal. The colonoscope was then passed through the anus into the rectosigmoid and through the descending, transverse, and ascending colon up to the cecum with visualization of the appendiceal orifice, base of the cecum and the ileocecal valve. The colonoscope was then withdrawn. The distal 5-10 cm of the terminal ileum were normal The appendiceal orifice was well visualized and was normal. There was no evidence of ileitis or colitis. Terminal ileum biopsies were obtained and also some ascending colon biopsies were obtained as there was mild mucosal edema of the ascending colon No polyps or masses were seen. There was no clear-cut diverticular disease. On retroflexion and straight on view she had trace internal hemorrhoids The patient tolerated the procedure well without difficulty. WITHDRAWAL TIME: 11 mins QUALITY OF THE PREP: [place] Bowel Prep score: 9. COMPLICATIONS : None SPECIMENS: Terminal ileum biopsies Ascending colon biopsy DISPOSITION: Transfer back to the floor Stable PLAN: 1. Repeat colonoscopy base on biopsy result likely in 10 years 2. Resume GI soft diet advance as tolerated 3. Increase fluid and fiber intake 4. Outpatient follow up with me in 4-6 weeks to review results and discuss further management JORGITO MOLINA MD Jan 24, 2025 14:02
[2025-01-25] VITALS (7 sets, daily range): BP systolic 98–111; BP diastolic 41–61; PULSE 59–64; RESP 17–20; TEMP 98–98.3; O2SAT 93–99
--- NOTE | 2025-01-25 11:09 | DVHDS2 ---
Discharge Summary Date of Admission Jan 21, 2025 at 09:41 Labs/Diagnostic Data: Laboratory Results Test 01/25/25 06:12 01/24/25 17:41 01/23/25 23:50 01/21/25 05:31 POC Glucose 162 mg/dl (70-106) Lipase 32 U/L (12-53) White Blood Count 11.4 10^3/uL (4.4-10.8) Red Blood Count 3.55 10^6/uL (4.0-5.20) Hemoglobin 10.8 g/dL (12.2-16.2) Hematocrit 32.3 % (36.0-46.0) Mean Corpuscular Volume 91.1 fL (80.0-100.0) Mean Corpuscular Hemoglobin 30.5 pg (28.0-32.0) Mean Corpuscular Hemoglobin Concent 33.5 g/dL (32.0-36.0) Red Cell Distribution Width 14.6 % (11.8-14.3) Platelet Count 257 10^3/uL (140-450) Mean Platelet Volume 8.1 fL (6.9-10.8) Neutrophils (%) (Auto) 79.9 % (37.0-80.0) Lymphocytes (%) (Auto) 13.4 % (10.0-50.0) Monocytes (%) (Auto) 5.5 % (0.0-12.0) Eosinophils (%) (Auto) 0.9 % (0.0-7.0) Basophils (%) (Auto) 0.3 % (0.0-2.0) Neutrophils # (Auto) 9.1 10 ^3/uL (1.6-8.6) Lymphocytes # (Auto) 1.5 10 ^3/uL (0.4-5.4) Monocytes # (Auto) 0.6 10 ^3/uL (0-1.3) Eosinophils # (Auto) 0.1 10 ^3/uL (0-0.8) Basophils # (Auto) 0 10 ^3/uL (0-0.2) Nucleated Red Blood Cells 0.0 % Prothrombin Time 10.4 sec (9.3-11.8) Prothrombin Time INR 0.98 (0.9-1.15) Activated Partial Thromboplast Time 30.2 SEC (24.5-34.5) Sodium Level 140 mmol/L (136-145) Potassium Level 3.3 mmol/L (3.5-5.1) Chloride Level 101 mmol/L (98-107) Carbon Dioxide Level 31 mmol/L (20-31) Anion Gap 8 (5-15) Blood Urea Nitrogen < 5 mg/dL (9-23) Creatinine 0.64 mg/dL (0.550-1.02) Glomerular Filtration Rate Calc 98 mL/min (>90) BUN/Creatinine Ratio 7.8 (10.0-20.0) Serum Glucose 147 mg/dL (74-106) Calcium Level 9.6 mg/dL (8.7-10.4) Total Bilirubin 0.4 mg/dL (0.2-1.0) Aspartate Amino Transferase (AST) 50 U/L (13-40) Alanine Aminotransferase (ALT) 44 U/L (7-40) Alkaline Phosphatase 87 U/L (46-116) Total Protein 6.8 g/dL (5.7-8.2) Albumin 4.2 g/dL (3.2-4.8) Beta HCG, Quantitative 4.1 mIU/mL (1.5-4.2) Erythrocyte Sedimentation Rate 54 mm/hr (0-20) Hemoglobin A1c 7.7 % A1C (<5.7) Carcinoembryonic Antigen 0.80 ng/mL (<=5.0) Test 01/21/25 05:00 Urine Color Light-orange (Yellow) Urine Clarity Clear (Clear) Urine pH 5.5 (5.0-9.0) Urine Specific [place] 1.034 (1.001-1.035) Urine Protein 1+ (Negative) Urine Ketones 2+ (Negative) Urine Blood 1+ /uL (Negative) Urine Nitrite Negative (Negative) Urine Bilirubin Negative (Negative) Urine Urobilinogen 2 mg/dL (Negative) Urine Leukocyte Esterase 1+ /uL (Negative) Urine RBC 11 /hpf (0 - 4) Urine Microscopic WBC 9 /HPF (0-5) Urine Squamous Epithelial Cells Few /hpf (<5) Urine Bacteria None seen /hpf (None Seen) Urine Mucus Few (None Seen) Urine Glucose Trace mg/dL (Normal) Other Laboratory Tests 01/23/25 23:50 Discharge Statement: "Patient was advised to return to the ER or call 911 if any headaches, dizziness, shortness of breath, chest pain, abdominal pain, bleeding, fevers, or worsening of medical condition. Patient was counseled about treatment plan, medications, possible side effects, patientverbalized understanding. All questions were answered to the best of my ability. This discharge took greater then 30 minutes in planning, reviewing documentation, counseling the patient, and discussing with other team members." ASSESSMENT ASSESSMENT Assessment DAKOTA ALEJANDRO MD Jan 25, 2025 11:08
== END 2025-01-25 14:00 | disposition home or self-care (01) | DRG 387 ==
LOC: ER 04:54 → OVERFLOW 09:41 → WEST WING 17:59
PROVIDERS: ADMIT Internal Medicine; ATTEND Internal Medicine
PROC: 0DBB8ZX Excision of Ileum, Via Natural or Artificial Opening Endoscopic, Diagnostic (ICD-10-PCS; 2025-01-24)
PROC: 0DBK8ZX Excision of Ascending Colon, Via Natural or Artificial Opening Endoscopic, Diagnostic (ICD-10-PCS; principal; 2025-01-24 13:30)
DX: K50.00 Crohn's disease of small intestine without complications (principal); K64.8 Other hemorrhoids; K76.0 Fatty (change of) liver, not elsewhere classified; D72.829 Elevated white blood cell count, unspecified; E11.65 Type 2 diabetes mellitus with hyperglycemia; Z80.3 Family history of malignant neoplasm of breast; Z98.51 Tubal ligation status; Z80.49 Family history of malignant neoplasm of other genital organs
CPT/HCPCS: 36415; 45380; 71045; 74176; 80053; 81001; 82378; 82962; 83036; 83690; 84702; 85025; 85610; 85652; 85730; 86850; 86870; 86880; 86900; 86901; 86905; 86906; 93005; 96361; 96365; 96375; G0378; J0692; J1815; J2250; J2405; J2543; J3490

== ENCOUNTER 2025-08-26 10:59 | Inpatient (IN) | payer MEDICARE, MEDICAID ==
[~2025-08-26] VITALS: Ht 152.4 cm; Wt 69.7 kg
--- NOTE | 2025-08-26 12:10 | ED.PDOC ---
GI ASSESSMENT HPI Comments Ms. Higgins is a 64-year-old female with prior medical history of diabetes, who presents today with chief complaint of right-sided flank pain. She began having dysuria on Friday, which she tried to treat by increasing her water intake, and since yesterday has progressed to lower right upper quadrant and right flank pain described as intermittent, sharp, non-radiating, 10/10 intensity, associated with chills, febrile sensation, and vomiting, with no aggravating or relieving factors. She denies changes in urine, hematuria, nausea, diarrhea, chest pain, shortness of breath, and palpitations. On initial evaluation, the patient is uncomfortable due to pain, afebrile, vitals within normal range, and ambulates with mild difficulty due to pain. Chief Complaint: Flank Pain Time Seen by MD: 11:21 Primary Care Provider: MOHSEN Allergies: Coded Allergies: NO KNOWN ALLERGIES (Unverified , 01/30/19) Home Meds No Active Prescriptions or Reported Meds Information Source: Patient Mode of Arrival: Ambulatory Timing: Days Duration: Since onset Quality: Sharp Vomitus: Food Particles, Watery Stool: Normal Severity: Moderate Recent: None Recent Hx of: None Pain Location: RUQ, None (Right flank ) Modifying Factors: Nothing Associated sign and symptoms: Vomiting, Other (Dysuria and chills) Past Medical History PAST MEDICAL HISTORY: DM, Kidney Stones Surgical History: BTL, Tubal Ligation CLIENT FINANCE ANALYST History: No Pertinent CLIENT FINANCE ANALYST History Family History Family History: Family hx of Cancer, Family hx of HTN Social History Smoker: Non-Smoker Alcohol: Denies ETOH Use Drugs: Denies Drug Use Lives In: Home Constitutional: reports: chills, fatigue; denies: diaphoresis, fever, malaise, sweats, weakness EENTM: denies: blurred vision, double vision, nasal discharge, nose congestion, throat pain Respiratory: denies: cough, hemoptysis, orthopnea, shortness of breath Cardiovascular: denies: chest pain, dizzy spells, diaphoresis, Dyspnea on exertion, edema, palpitations Gastrointestinal: reports: abdominal pain, poor appetite, vomiting; denies: abdomen distended, blood streaked bowels, constipated, diarrhea, dysphagia, difficulty swallowing, hematemesis, melena, nausea, poor fluid intake Genitourinary: reports: dysuria; denies: burning, flank pain, frequency, hematuria, incontinence, pain, urgency Neurological: denies: dizziness, fainting, headache, numbness, paresthesia, pre-existing deficit, seizure, weakness Musculoskeletal: denies: back pain, joint pain, joint swelling, muscle pain, muscle stiffness, neck pain Integumetry: denies: bruises, laceration, lesions, lumps, rash, wounds Physical Exam General Appearance: Moderate Distress, Obese HEENT: Normal ENT Inspection, PERRL/EOMI, Pharynx Normal Neck: Full Range of Motion, Non-Tender, Normal Inspection Respiratory: Chest Non-Tender, Lungs Clear, No Accessory Muscle Use, No Respiratory Distress, Normal Breath Sounds Cardiovascular: No Edema, Normal Peripheral Pulses, Regular Rate/Rhythm Breast Exam: Deferred Gastrointestinal: Other ( Obese, abdomen nondistended, normal bowel sounds, tympanic to percussion, soft, pain on superifical palpation of right abdominal quadrants, right CVA tenderness, no guarding or rebound tenderness, no palpable masses) Genitalia: Deferred Pelvic: Deferred Rectal: Deferred Extremities: Normal capillary refill, Normal inspection, Normal range of motion, Non-tender, No pedal edema Neurologic: Alert, Normal Affect, Normal Mood Cerebellar Function: NOT DONE Reflexes: NOT DONE Skin: Normal Color Peripheral Pulses: 3+ dorsalis pedis (R), 3+ dorsalis pedis (L) Lymphatic: Other (No cervical adenopathy) Was a procedure done? Was a procedure done?: No GI differential Dx Differential Diagnosis: Diverticular disease, Gastritis/PUD, Gastroenteritis, Hernia, Urinary Obstruction, UTI, Urolithiasis, Food Poisoning, Renal Failure, Kidney Stone X-Ray, Labs, Meds, VS Vital Signs Date Time Temp Pulse Resp B/P (MAP) Pulse Ox O2 Delivery O2 Flow Rate FiO2 08/26/25 20:10 99.0 82 18 146/75 (98) 95 99.0 08/26/25 16:38 72 18 97 Room Air* 0 21 08/26/25 16:38 98.2 72 18 142/67 (92) 97 98.2 08/26/25 15:39 71 18 97 Room Air 08/26/25 15:39 98.5 71 18 138/78 (98) 97 98.5 08/26/25 14:43 98.6 89 16 136/91 (106) 95 98.6 08/26/25 11:08 97.9 71 20 143/94 98 97.9 Lab Test 08/26/25 16:23 08/26/25 14:29 08/26/25 12:45 08/26/25 12:24 Range/Units Lactic Acid Level 2.5 *H 2.1 *H 0.4-2.0 mmol/L White Blood Count 15.9 H 4.4-10.8 10^3/uL Red Blood Count 4.51 4.0-5.20 10^6/uL Hemoglobin 13.7 12.2-16.2 g/dL Hematocrit 41.0 36.0-46.0 % Mean Corpuscular Volume 90.7 80.0-100.0 fL Mean Corpuscular Hemoglobin 30.3 28.0-32.0 pg Mean Corpuscular Hemoglobin Concent 33.4 32.0-36.0 g/dL Red Cell Distribution Width 14.6 H 11.8-14.3 % Platelet Count 251 140-450 10^3/uL Mean Platelet Volume 8.8 6.9-10.8 fL Neutrophils (%) (Auto) 87.6 H 37.0-80.0 % Lymphocytes (%) (Auto) 7.8 L 10.0-50.0 % Monocytes (%) (Auto) 4.2 0.0-12.0 % Eosinophils (%) (Auto) 0.1 0.0-7.0 % Basophils (%) (Auto) 0.3 0.0-2.0 % Neutrophils # (Auto) 13.9 H 1.6-8.6 10 ^3/uL Lymphocytes # (Auto) 1.2 0.4-5.4 10 ^3/uL Monocytes # (Auto) 0.7 0-1.3 10 ^3/uL Eosinophils # (Auto) 0 0-0.8 10 ^3/uL Basophils # (Auto) 0 0-0.2 10 ^3/uL Nucleated Red Blood Cells 0.0 % Sodium Level 137 136-145 mmol/L Potassium Level 4.2 3.5-5.1 mmol/L Chloride Level 100 98-107 mmol/L Carbon Dioxide Level 25 20-31 mmol/L Anion Gap 12 5-15 Blood Urea Nitrogen 12 9-23 mg/dL Creatinine 0.73 0.550-1.02 mg/dL Glomerular Filtration Rate Calc 91 >90 mL/min BUN/Creatinine Ratio 16.4 10.0-20.0 Serum Glucose 165 H 74-106 mg/dL Calcium Level 9.2 8.7-10.4 mg/dL Magnesium Level 1.8 1.6-2.6 mg/dL Total Bilirubin 0.6 0.2-1.0 mg/dL Direct Bilirubin 0.2 <0.3 mg/dL Aspartate Amino Transferase (AST) 25 13-40 U/L Alanine Aminotransferase (ALT) 27 7-40 U/L Alkaline Phosphatase 66 46-116 U/L Total Protein 7.6 5.7-8.2 g/dL Albumin 4.7 3.2-4.8 g/dL Lipase 34 12-53 U/L Urine Color Colorless Yellow Urine Clarity Turbid H Clear Urine pH 6.0 5.0-9.0 Urine Specific [place] 1.007 1.001-1.035 Urine Protein Trace H Negative Urine Ketones 1+ H Negative Urine Blood 3+ H Negative /uL Urine Nitrite 1+ H Negative Urine Bilirubin Negative Negative Urine Urobilinogen Normal Negative mg/dL Urine Leukocyte Esterase 3+ Negative /uL Urine RBC 12 0 - 4 /hpf Urine WBC Clumps Present None Seen /hpf Urine Microscopic WBC 428 H 0-5 /HPF Urine Squamous Epithelial Cells Few <5 /hpf Urine Bacteria None seen None Seen /hpf Urine Yeast (Budding) Occasional None Seen /hpf Urine Glucose Normal Normal mg/dL Microbiology Date/Time Source Procedure Growth Status 08/26/25 12:24 Voided Urine Urine Culture - Preliminary Resulted Current Medications Medications (Trade) Dose Ordered Sig/Theodore Route Start Time Stop Time Status Last Admin Ceftriaxone Sodium 50 ml @ 100 mls/hr ONCE ONCE IV 08/26/25 14:30 08/26/25 14:59 DC 08/26/25 16:23 Sodium Chloride 500 ml @ 500 mls/hr Q1H ONCE IV 08/26/25 14:30 08/26/25 15:29 DC 08/26/25 15:45 Ketorolac Tromethamine (Toradol Injection) 15 mg ONCE ONCE IV 08/26/25 15:45 08/26/25 15:47 DC 08/26/25 16:23 Dr. Miranda: I have seen the patient personally along with Dr. Casiano. At this time patient appears to have pyelonephritis. She has a leukocytosis of 15.9. Urine positive for UTI and CT abdomen pelvis consistent with a pyelonephritis. Patient has been started on Rocephin IV. Patient has been given IV fluids and Toradol for pain control. I agree with Dr. Casiano's assessment. Patient has been admitted to hospitalist team for pyelonephritis. Time of 1ST Reevaluation: 14:30 Reevaluation 1ST: Unchanged Patient Education/Counseling: Diagnosis, Treatment Family Education/Counseling: Diagnosis, Treatment Comments Patient presented today with chief complaint of flank pain On initial evaluation, the patient is uncomfortable due to pain, afebrile, vitals within normal range, and ambulates with mild difficulty due to pain. Physical exam is positive for pain on superficial palpation of right quadrant and right CVA tenderness CBC shows leukocytosis with neutrophilia, BMP is within normal range, UA is significant for UTI Blood and urine cultures have been ordered, lactic acid has been ordered Abdominal CT shows mild inflammatory changes at the right renal pelvis / ureter and mild bladder wall thickening, 6 mm non destructive right renal calculus. No hydronephrosis, distended gallbladder Due gallbladder findings on CT, hepatic panel was ordered which is in normal range On review of the data and clinical picture, pyelonephritis is very likely The patient will be admitted for further management with IV antibiotics. Ceftriaxone 1 g IV and a 1000 cc bolus have been started. Acetaminophen 650 mg PO was given for pain. I have discussed all findings, implications, and plan of care with the patient. SEPSIS Sepsis Screen Date sepsis recognized/suspect: Aug 26, 2025 Time Sepsis recognized/suspect: 1108 Recent Procedure: No On Antibiotic Therapy: No Respiratory Rate >20: No Heart Rate >90: No Temp<36 C (96.8 F) or >38.3 C: No SBP <90 or MAP <65 mmHG: No New Acute Mental Status Change: No Is the patient on CPAP, BIPAP,: No Physician Orders Ct Ab Pel Wo Con-No Oral Or Iv (08/26/25 12:29) Blood Culture (08/26/25 14:17) Urine Bacterial Culture (08/26/25 14:51) Vital Signs Date Time Temp Pulse Resp B/P (MAP) Pulse Ox O2 Delivery O2 Flow Rate FiO2 08/26/25 20:10 99.0 82 18 146/75 (98) 95 99.0 08/26/25 16:38 72 18 97 Room Air* 0 21 08/26/25 16:38 98.2 72 18 142/67 (92) 97 98.2 08/26/25 15:39 71 18 97 Room Air 08/26/25 15:39 98.5 71 18 138/78 (98) 97 98.5 08/26/25 14:43 98.6 89 16 136/91 (106) 95 98.6 08/26/25 11:08 97.9 71 20 143/94 98 97.9 Laboratory Tests Test 08/26/25 12:45 08/26/25 14:29 08/26/25 16:23 White Blood Count 15.9 10^3/uL (4.4-10.8) H Lactic Acid Level 2.1 mmol/L (0.4-2.0) *H 2.5 mmol/L (0.4-2.0) *H Departure 1 Departure Time of Disposition: 15:56 Impression: Primary Impression: Intractable abdominal pain Additional Impression: Pyelonephritis Disposition: 30 STILL A PATIENT Admit to: Tele Condition: Serious e-Prescriptions No Active Prescriptions or Reported Meds Critical Care Note Critical Care Time?: No Stability Stability form required: No Heart Score Heart Score: Heart Score Response (Comments) Value History N/A 0 EKG N/A 0 Age N/A 0 Risk Factors N/A 0 Troponin N/A 0 Total 0 MARIO ALBERTO CASIANO RESIDENT Aug 26, 2025 12:10 SHAMIKA MIRANDA MD Aug 27, 2025 14:08
[2025-08-26] MEDS: ONDANSETRON ODT 4 MG TAB PO ONE (12:57)
[2025-08-26] MEDS: ACETAMINOPHEN 325 MG TAB PO ONE (12:57)
--- NOTE | 2025-08-26 13:07 | DVH ---
EXAM DESCRIPTION: CT CT AB PEL WO CON-NO ORAL OR IV CLINICAL HISTORY: ABD PAIN R/O NEPHROLITHIASIS COMPARISON: CT CT AB PEL WO CON-NO ORAL OR IV on DOS: 01/21/25 TECHNIQUE: CT abdomen and pelvis without IV contrast was performed. Coronal and sagittal MPR images were generated.CTDI/ DLP = / Dose reduction technique with one or more of the following methods was performed: Automated exposure control, adjustment of the mA and/or kV according to patient size, use of iterative reconstruction technique FINDINGS: Lower chest: Clear lung bases. Liver: Diffusely decreased in attenuation. . Biliary: Moderately distended gallbladder. No calcified gallstones. No biliary ductal dilatation. Pancreas: No fat stranding or focal lesion. Spleen: Normal in size.. Adrenal glands: No nodularity. Kidneys: Non obstructive 6 mm right renal calculus. No left renal calculi. There is mild urothelial wall thickening and surrounding fat straining at the right renal pelvis. Minimal fat training is also noted around the right ureter. No hydroureteronephrosis. . Bladder: Mild bladder wall thickening. Reproductive organs: Normal. Bowel: No bowel wall thickening or dilatation. Normal appendix.. Peritoneum: No free fluid. No free air. Vessels: Normal caliber abdominal aorta. . Lymph nodes: No suspicious lymph nodes. Soft tissues: Unremarkable. . Osseous structures: No acute fracture or subluxation. No suspicious osseous lesions. IMPRESSION: 1. Mild inflammatory changes at the right renal pelvis / ureter and mild bladder wall thickening. Correlate with urinalysis and symptoms for cystitis with ascending right-sided urinary tract infection. 2. A 6 mm non destructive right renal calculus. No hydronephrosis. 3. Moderate distended gallbladder. No calcified gallstones. Recommend further evaluation with ultrasound.
[2025-08-26 13:13] LABS: Hematocrit 41.0 % (36.0-46.0); Hemoglobin 13.7 g/dL (12.2-16.2); Mean Corpuscular Hemoglobin 30.3 pg (28.0-32.0); Mean Corpuscular Volume 90.7 fL (80.0-100.0); Nucleated Red Blood Cells % 0.0 %
[2025-08-26 13:24] LABS: Chloride 100 mmol/L (98-107); Potassium 4.2 mmol/L (3.5-5.1); Sodium 137 mmol/L (136-145)
[2025-08-26 13:25] LABS: Anion Gap 12 (5-15); Calcium 9.2 mg/dL (8.7-10.4); Carbon Dioxide 25 mmol/L (20-31)
[2025-08-26 13:31] LABS: BUN/Creatinine Ratio 16.4 (10.0-20.0); Blood Urea Nitrogen 12 mg/dL (9-23); Glucose 165 mg/dL (74-106)
[2025-08-26 13:54] LABS: Alanine Aminotransferase 27.0 U/L (7-40); Albumin 4.7 g/dL (3.2-4.8); Alkaline Phosphatase 66.0 U/L (46-116); Bilirubin, Direct 0.2 mg/dL (<0.3); Total Protein 7.6 g/dL (5.7-8.2)
[2025-08-26 13:55] LABS: Bilirubin, Total 0.6 mg/dL (0.2-1.0)
[2025-08-26 14:13] LABS: Urine Budding Yeast OCCASIONAL /hpf (None Seen); Urine Protein, UAD TRACE (Negative); Urine WBC Clumps PRESENT /hpf (None Seen)
[2025-08-26 15:13] LABS: Lactic Acid w/Reflex 2.1 mmol/L (0.4-2.0)
[2025-08-26] MEDS: SODIUM CHLORIDE 0.9% 500 ML IV ONE (15:45)
[2025-08-26] MEDS: KETOROLAC TROMETH 30 MG/ML 1ML VIAL IV ONE (16:23)
[2025-08-26 16:38] VITALS: PULSE 72; RESP 18; O2SAT 97
[2025-08-26] MEDS ORDERED: ONDANSETRON HCL 4 MG/2 ML VIAL IV PRN (20:45)
[2025-08-26] MEDS ORDERED: HYDROmorphone HCL 2 MG/ML VL/or syr IV PRN (20:45)
[2025-08-26] MEDS ORDERED: DEXTROSE (50%) 50ML SYRG IV PRN (20:45)
[2025-08-26] MEDS ORDERED: ACETAMINOPHEN 325 MG TAB PO PRN (20:45)
[2025-08-26 21:34] LABS: Lipase 34.0 U/L (12-53); Magnesium 1.8 mg/dL (1.6-2.6)
--- NOTE | 2025-08-26 21:36 | DVH ---
EXAM: XY CHEST XRAY 1 VIEW HISTORY: sob TECHNIQUE: 1 view of the chest COMPARISON: XY CHEST PORTABLE on DOS: 01/24/25 FINDINGS/IMPRESSION: LUNGS: No pleural effusion, consolidation, or pneumothorax. MEDIASTINUM: Unremarkable. BONES: No acute osseous abnormality. OTHER: None.
[2025-08-26] MEDS: ACCU-CHEK COMFORT CURVE STRIP VI SCH (22:43)
[2025-08-26] MEDS: TAMSULOSIN HYDROCHLORIDE 0.4 MG CAP PO ONE (22:48)
[2025-08-26] MEDS: ENOXAPARIN SOD 40 MG/0.4 ML SYRINGE SC SCH (22:49)
--- NOTE | 2025-08-26 22:49 | DVH ---
ABDOMINAL ULTRASOUND CLINICAL HISTORY: ruq pain TECHNIQUE: Multiple grayscale and color Doppler ultrasound images were obtained of the abdomen. WID: COMPARISON: None FINDINGS: Liver and Biliary System: Increased echogenicity, increased size measuring 18 cm. No focal hepatic observations. No intrahepatic bile duct dilatation. The common duct measures 0.6 cm at the rakan hepatis. The gallbladder is normal caliber which contains cholelithiasis. No gallbladder wall thickening measuring 2.1 mm. Sonographic francois's sign is negative.. Pancreas: Visualized portions are unremarkable. Kidneys: The right kidney is 12.1 cm . No hydronephrosis, increased echogenicity, shadowing stone, or focal lesion. IMPRESSION: 1. Hepatomegaly with diffuse hepatic steatosis. 2. Cholelithiasis. No acute cholecystitis or biliary ductal dilatation.
[2025-08-26] MEDS: InsuLIN REG 1unit/0.01ml Soln (100units/ml) SC SCH (22:50)
[2025-08-26] MEDS: SODIUM CHLORIDE 0.9% 1,000 ML IV ONE (22:51)
--- NOTE | 2025-08-26 23:46 | DVHHPRES ---
History of Present Illness Resident Creating Document: INDIGO LARIOS RESIDENT History of Present Illness 64-year-old female with a past medical history of diabetes type 2, internal hemorrhoids, bilateral tubal ligation, and right wrist tendon repair has come to the emergency with chief complaints of suprapubic and right upper quadrant abdominal pain. Patient reports that 2 days ago, she had lower abdominal pain which was 10/10 in intensity, sharp, radiating up to her right upper quadrant and back, associated with subjective fever, chills, nausea, 1 episode of nonbloody, watery emesis as well as burning micturition, with increased frequency and dysuria. On admission , patient was septic with increased respir atory rate 20, WBC 15.9, lactic acid 2.1 and UA shows UTI. CT abdomen and pelvis shows right nephrolithiasis which is nonobstructing 6 mm, right renal pelvis/ureter/bladder thickening; Moderate distended gallbladder. No calcified gallstones. We are admitting the patient for further workup and management. PMH/PSH: As stated above Family history: Reviewed, noncontributory to the management of this case Social history: Patient denies smoking, drinking alcohol or any other illicit drug abuse Allergies: None PCP: Dr. Lehman Code status: Full code Review of Systems Constitutional: Yes: Fever, Chills; No: Sweats, Weakness, Malaise, Other Eyes: No: Pain, Vision change, Conjunctivae inflammation, Eyelid inflammation, Other, Redness ENT: No: Ear pain, Ear discharge, Nose pain, Nose discharge, Nose congestion, Mouth pain, Mouth swelling, Throat pain, Throat swelling, Other Respiratory: No: Cough, Dry, Shortness of breath, SOB with excertion, Wheezing, Hemoptysis, Pleuritic Pain, Sputum, Wheezing, Other Cardiovascular: No: Chest Pain, Palpitations, Orthopnea, Paroxysmal Noc. Dyspnea, Edema, Lt Headedness, Other Gastrointestinal: Nausea, Vomiting, Abdominal Pain; No: Diarrhea, Constipation, Melena, Hematochezia, Other Genitourinary: Dysuria, Frequency, Incontinence; No Hematuria, No Retention, No Other Musculoskeletal: No: other, neck pain, shoulder pain, arm pain, back pain, hand pain, leg pain, foot pain Skin: No: Rash, Lesions, Jaundice, Bruising, Other Neurological: No: Weakness, Numbness, Incoordination, Change in speech, Confusion, Seizures, Other Allergies: Coded Allergies: NO KNOWN ALLERGIES (Unverified , 01/30/19) Medications Current Medications Medications Dose Ordered Sig/Theodore Route Start Time Stop Time Status Last Admin Dose Admin Acetaminophen/ Hydrocodone Bitart 1 tab Q4HP PRN PO 08/26/25 20:45 Ondansetron HCl 4 mg Q4HP PRN IV 08/26/25 20:45 Acetaminophen 650 mg Q6HP PRN PO 08/26/25 20:45 Enoxaparin Sodium 40 mg DAILY SC 08/26/25 20:45 08/26/25 22:49 40 MG Hydromorphone HCl 0.25 mg Q4HPRN PRN IV 08/26/25 20:45 Ceftriaxone Sodium/Dextrose 50 ml @ 50 mls/hr DAILY IV 08/27/25 10:00 Diagnostic Test (Pha) 1 strip ACHS 08/26/25 22:00 08/26/25 22:43 1 STRIP Insulin Human Regular ACHS SC 08/26/25 22:00 08/26/25 22:50 4 UNITS Dextrose 50 ml UD PRN IV 08/26/25 20:45 Tamsulosin HCl 0.4 mg QPM PO 08/27/25 18:00 Exam Vital Signs Vital Signs Date Time Temp Pulse Resp B/P (MAP) Pulse Ox O2 Delivery O2 Flow Rate FiO2 08/26/25 21:01 99.0 82 18 146/75 (98) 95 99.0 08/26/25 16:38 Room Air* 0 21 Exam General Appearance: Alert, Oriented X3, Cooperative, Not in acute distress HEENT: Atraumatic, Mucous membranes moist/pink Respiratory: Clear to auscultation, Normal air movement, No added sounds Cardiovascular: Regular rate, Normal S1, Normal S2, No murmurs Abdominal: Active bowel sounds, Soft, no distention, Carpenter's positive, tenderness in suprapubic region on palpation, presence of costovertebral angle tenderness on right side Extremities: No edema, Normal pulses, No tenderness/swelling Skin: No Significant rash, except past surgical scars Neuro: Normal speech, sensorimotor deficits none Psych/Mental Status: Mental status NL, Mood NL Labs/Xrays Labs Test 08/26/25 22:40 08/26/25 12:45 08/26/25 12:24 Range/Units Lactic Acid Level 1.2 0.4-2.0 mmol/L White Blood Count 15.9 H 4.4-10.8 10^3/uL Red Blood Count 4.51 4.0-5.20 10^6/uL Hemoglobin 13.7 12.2-16.2 g/dL Hematocrit 41.0 36.0-46.0 % Mean Corpuscular Volume 90.7 80.0-100.0 fL Mean Corpuscular Hemoglobin 30.3 28.0-32.0 pg Mean Corpuscular Hemoglobin Concent 33.4 32.0-36.0 g/dL Red Cell Distribution Width 14.6 H 11.8-14.3 % Platelet Count 251 140-450 10^3/uL Mean Platelet Volume 8.8 6.9-10.8 fL Neutrophils (%) (Auto) 87.6 H 37.0-80.0 % Lymphocytes (%) (Auto) 7.8 L 10.0-50.0 % Monocytes (%) (Auto) 4.2 0.0-12.0 % Eosinophils (%) (Auto) 0.1 0.0-7.0 % Basophils (%) (Auto) 0.3 0.0-2.0 % Neutrophils # (Auto) 13.9 H 1.6-8.6 10 ^3/uL Lymphocytes # (Auto) 1.2 0.4-5.4 10 ^3/uL Monocytes # (Auto) 0.7 0-1.3 10 ^3/uL Eosinophils # (Auto) 0 0-0.8 10 ^3/uL Basophils # (Auto) 0 0-0.2 10 ^3/uL Nucleated Red Blood Cells 0.0 % Sodium Level 137 136-145 mmol/L Potassium Level 4.2 3.5-5.1 mmol/L Chloride Level 100 98-107 mmol/L Carbon Dioxide Level 25 20-31 mmol/L Anion Gap 12 5-15 Blood Urea Nitrogen 12 9-23 mg/dL Creatinine 0.73 0.550-1.02 mg/dL Glomerular Filtration Rate Calc 91 >90 mL/min BUN/Creatinine Ratio 16.4 10.0-20.0 Serum Glucose 165 H 74-106 mg/dL Calcium Level 9.2 8.7-10.4 mg/dL Magnesium Level 1.8 1.6-2.6 mg/dL Total Bilirubin 0.6 0.2-1.0 mg/dL Direct Bilirubin 0.2 <0.3 mg/dL Aspartate Amino Transferase (AST) 25 13-40 U/L Alanine Aminotransferase (ALT) 27 7-40 U/L Alkaline Phosphatase 66 46-116 U/L Total Protein 7.6 5.7-8.2 g/dL Albumin 4.7 3.2-4.8 g/dL Lipase 34 12-53 U/L Urine Color Colorless Yellow Urine Clarity Turbid H Clear Urine pH 6.0 5.0-9.0 Urine Specific [place] 1.007 1.001-1.035 Urine Protein Trace H Negative Urine Ketones 1+ H Negative Urine Blood 3+ H Negative /uL Urine Nitrite 1+ H Negative Urine Bilirubin Negative Negative Urine Urobilinogen Normal Negative mg/dL Urine Leukocyte Esterase 3+ Negative /uL Urine RBC 12 0 - 4 /hpf Urine WBC Clumps Present None Seen /hpf Urine Microscopic WBC 428 H 0-5 /HPF Urine Squamous Epithelial Cells Few <5 /hpf Urine Bacteria None seen None Seen /hpf Urine Yeast (Budding) Occasional None Seen /hpf Urine Glucose Normal Normal mg/dL SEPSIS Sepsis Screen Date sepsis recognized/suspect: Aug 26, 2025 Time Sepsis recognized/suspect: 1108 Recent Procedure: No On Antibiotic Therapy: No Respiratory Rate >20: No Heart Rate >90: No Temp<36 C (96.8 F) or >38.3 C: No SBP <90 or MAP <65 mmHG: No New Acute Mental Status Change: No Is the patient on CPAP, BIPAP,: No Physician Orders Admit (08/26/25 20:43) Code Status (08/26/25 20:43) Hydrocodone-Acet 5/325mg Tab ([place] 5/32 (08/26/25 20:45) Ondansetron Hcl (Zofran) (08/26/25 20:45) Complete Blood Count (08/27/25 04:00) Comprehensive Metabolic Panel (08/27/25 04:00) Acetaminophen Tablet (Tylenol Tablet) (08/26/25 20:45) Enoxaparin Sodium (Lovenox) (08/26/25 20:45) Sodium Chloride 0.9% (08/26/25 20:45) Hydromorphone Injection (Dilaudid Inject (08/26/25 20:45) Ceftriaxone 2gm/50ml (Rocephin 2gm/50ml) (08/27/25 10:00) Consistent Carb(Ccho)Diabetes (08/27/25 Breakfast) LIVER (08/26/25 20:43) Glucose Blood (Accu-Chek Comfort Curve T (08/26/25 22:00) Insulin R (Human) (Insulin R) (08/26/25 22:00) Dextrose 50% Syringe (08/26/25 20:45) Chest Xray 1 View (08/26/25 20:43) Tamsulosin Hydrochloride (Flomax) (08/27/25 18:00) Vital Signs Date Time Temp Pulse Resp B/P (MAP) Pulse Ox O2 Delivery O2 Flow Rate FiO2 08/26/25 21:01 99.0 82 18 146/75 (98) 95 99.0 08/26/25 20:10 99.0 82 18 146/75 (98) 95 99.0 08/26/25 16:38 72 18 97 Room Air* 0 21 08/26/25 16:38 98.2 72 18 142/67 (92) 97 98.2 Laboratory Tests Test 08/26/25 12:45 08/26/25 14:29 08/26/25 16:23 08/26/25 22:40 White Blood Count 15.9 10^3/uL (4.4-10.8) H Lactic Acid Level 2.1 mmol/L (0.4-2.0) *H 2.5 mmol/L (0.4-2.0) *H 1.2 mmol/L (0.4-2.0) Medications Medications Dose Ordered Sig/Theodore Route Start Time Stop Time Status Last Admin Dose Admin Acetaminophen 650 mg ONCE ONCE PO 08/26/25 12:00 08/26/25 12:11 DC 08/26/25 12:57 650 MG Ceftriaxone Sodium 50 ml @ 100 mls/hr ONCE ONCE IV 08/26/25 14:30 08/26/25 14:59 DC 08/26/25 16:23 100 MLS/HR Diagnostic Test (Pha) 1 strip ACHS 08/26/25 22:00 08/26/25 22:43 1 STRIP Enoxaparin Sodium 40 mg DAILY SC 08/26/25 20:45 11/7/25 22:49 40 MG Insulin Human Regular ACHS SC 08/26/25 22:00 08/26/25 22:50 4 UNITS Ketorolac Tromethamine 15 mg ONCE ONCE IV 08/26/25 15:45 08/26/25 15:47 DC 08/26/25 16:23 15 MG Ondansetron HCl 4 mg ONCE ONCE PO 08/26/25 12:00 08/26/25 12:11 DC 08/26/25 12:57 4 MG Sodium Chloride 500 ml @ 500 mls/hr Q1H ONCE IV 08/26/25 14:30 08/26/25 15:29 DC 08/26/25 15:45 500 MLS/HR Sodium Chloride 1,000 ml @ 1,000 mls/hr Q1H ONCE IV 08/26/25 20:45 08/26/25 21:44 DC 08/26/25 22:51 1,000 MLS/HR Tamsulosin HCl 0.4 mg ONCE ONCE PO 08/26/25 20:45 08/26/25 21:17 DC 08/26/25 22:48 0.4 MG Assessment/Plan Assessment/Plan #Sepsis due to symptomatic complicated UTI #Right nephrolithiasis #lactic acidosis -UA shows leukocyte esterase 3+, RBC 12, WBC clumps positive, occasional yeast, blood +3, nitrate +1, ketones +1 - urine culture - blood culture - lactic acid 2.1, 2.5, 1.2 - CT abdomen and pelvis shows: Mild inflammatory changes at the right renal pelvis / ureter and mild bladder wall thickening. Correlate with urinalysis and symptoms for cystitis with ascending right-sided urinary tract infection; A 6 mm non obstructive right renal calculus. No hydronephrosis - IV ceftriaxone 2 g daily - IV NS 0.9% - Pain management with: -Acetaminophen 650 mg p.o. q.6 PRN for mild pain -[place] 5325 mg q.4 PRN for moderate pain -Dilaudid 0.25 mg q.4 PRN for severe pain - IV ondansetron 4 mg q.4 PRN - tamsulosin 0.4 mg p.o. daily - Strain all urine for stone #Cholelithiasis #Diffuse hepatic steatosis - CT abdomen and pelvis shows: Moderate distended gallbladder. No calcified gallstones. Recommend further evaluation with ultrasound. -Liver ultrasound shows hepatomegaly with diffuse hepatic steatosis, cholelithiasis, no acute cholecystitis or biliary duct dilation - lipase 34 - monitor #Type 2 diabetes mellitus -A1c -No mild sliding scale insulin #Hypokalemia -repleted DVT prophylaxis: Lovenox 40 mg subcutaneously daily Diet: diabetic diet Goals of care discussed with the patient for more than 27 minutes: Full code status Case discussed with Dr. Enamorado, patient Plan discussed with: Patient My Orders Orders - INDIGO LARIOS RESIDENT Procedure Category Date Status Time Admit ADMIT 08/26/25 Transmitted 20:43 Code Status CODE 08/26/25 Transmitted 20:43 Hydrocodone-Acet PHA 08/26/25 In Process 5/325mg Tab ([place] 20:45 Ondansetron Hcl PHA 08/26/25 In Process (Zofran) 20:45 Complete Blood Count LAB 08/27/25 Verified 04:00 Comprehensive LAB 08/27/25 Verified Metabolic Panel 04:00 Acetaminophen Tablet PHA 08/26/25 In Process (Tylenol Tablet) 20:45 Enoxaparin Sodium PHA 08/26/25 In Process (Lovenox) 20:45 Sodium Chloride 0.9% PHA 08/26/25 In Process 20:45 Hydromorphone PHA 08/26/25 In Process Injection (Dilaudid 20:45 Ceftriaxone 2gm/50ml PHA 08/27/25 In Process (Rocephin 2gm/50ml) 10:00 Consistent DIET 08/27/25 Transmitted Carb(Ccho)Diabetes Breakfast LIVER US 08/26/25 Resulted 20:43 Glucose Blood PHA 08/26/25 In Process (Accu-Chek Comfort 22:00 Insulin R (Human) PHA 08/26/25 In Process (Insulin R) 22:00 Dextrose 50% Syringe PHA 08/26/25 In Process 20:45 Chest Xray 1 View XY 08/26/25 Resulted 20:43 Tamsulosin PHA 08/27/25 In Process Hydrochloride (Flomax) 18:00 Date of Service: Aug 27, 2025 Billing Provider: BECCA ENAMORADO MD Common Visit Codes: [id number] INP/OBS CARE (HIGH) Secondary Visit Codes: [id number] CARE PLAN 30 MINUTES INDIGO LARIOS RESIDENT Aug 26, 2025 23:46
[2025-08-27] VITALS (7 sets, daily range): BP systolic 102–134; BP diastolic 57–75; PULSE 68–78; RESP 16–20; TEMP 97.5–98.3; O2SAT 91–98
[2025-08-27] MEDS: SODIUM CHLORIDE 0.9% 1,000 ML IV ONE (00:54)
[2025-08-27 03:26] LABS: Hematocrit 35.8 % (36.0-46.0); Hemoglobin 11.9 g/dL (12.2-16.2); Mean Corpuscular Hemoglobin 30.6 pg (28.0-32.0); Mean Corpuscular Volume 92.4 fL (80.0-100.0); Nucleated Red Blood Cells % 0.1 %
[2025-08-27 03:45] LABS: Alanine Aminotransferase 18 U/L (7-40); Albumin 4.0 g/dL (3.2-4.8); Alkaline Phosphatase 50 U/L (46-116); Anion Gap 9 (5-15); BUN/Creatinine Ratio 12.7 (10.0-20.0); Calcium 8.7 mg/dL (8.7-10.4); Carbon Dioxide 24 mmol/L (20-31); Sodium 141 mmol/L (136-145); Total Protein 6.6 g/dL (5.7-8.2)
[2025-08-27 03:46] LABS: Bilirubin, Total 0.5 mg/dL (0.2-1.0)
[2025-08-27 03:57] LABS: Blood Urea Nitrogen 7 mg/dL (9-23); Chloride 108 mmol/L (98-107); Glucose 153 mg/dL (74-106); Potassium 3.4 mmol/L (3.5-5.1)
--- NOTE | 2025-08-27 04:05 | DVH ---
Exam: XY KUB ABDOMEN SINGLE VIEW Indication: right nephrolithiasis Comparison: None Technique: 2 radiographic views of the abdomen. Findings: The visualized portions of the lung bases are clear. Nonobstructive bowel gas pattern noted. There is no definite evidence for pneumoperitoneum. 6 mm calcific density overlies expected location of the right inferior renal pole. Impression: 1. 1.6 mm calcific density overlies expected location of the right inferior renal pole. 2. Nonobstructive bowel gas pattern.
[2025-08-27] MEDS: POTASSIUM CHL 20 Meq TABLET PO ONE (06:17)
[2025-08-27] MEDS: HYDROcodone-ACET 5/325MG TAB PO PRN (12:56)
--- NOTE | 2025-08-27 13:00 | DVHPN2 ---
Reviewed: Care Plan, H&P, Labs, Medications, Previous Orders, Radiology Changes from previous H/P or p: No Changes Eyes: No Pain, No Vision change, No Conjunctivae inflammation, No Eyelid inflammation, No Other, No Redness ENT: No Ear pain, No Ear discharge, No Nose pain, No Nose discharge, No Nose congestion, No Mouth pain, No Mouth swelling, No Throat pain, No Throat swelling, No Other Cardiovascular: No Chest Pain, No Palpitations, No Orthopnea, No Paroxysmal Noc. Dyspnea, No Edema, No Lt Headedness, No Other Respiratory: No Cough, No Dry, No Shortness of breath, No SOB with excertion, No Wheezing, No Hemoptysis, No Pleuritic Pain, No Sputum, No Other Gastrointestinal: Nausea, Vomiting, Abdominal Pain; No Diarrhea, No Constipation, No Melena, No Hematochezia, No Other Genitourinary: Dysuria, Frequency, Incontinence; No Hematuria, No Retention, No Other Musculoskeletal: No other, No neck pain, No shoulder pain, No arm pain, No back pain, No hand pain, No leg pain, No foot pain Skin: No Rash, No Lesions, No Jaundice, No Bruising, No Other Objective Vitals Vital Signs Date Time Temp Pulse Resp B/P (MAP) Pulse Ox O2 Delivery O2 Flow Rate FiO2 08/27/25 12:47 98.3 70 18 121/63 (82) 94 98.3 08/27/25 00:54 Room Air* 0 21 Intake/Output Intake and Output 08/27/25 07:00 Intake Total 1550 ml Balance 1550 ml Intake IV Total 1550 ml Medications Current Medications Medications Dose Ordered Sig/Theodore Route Start Time Stop Time Status Last Admin Dose Admin Acetaminophen/ Hydrocodone Bitart 1 tab Q4HP PRN PO 08/26/25 20:45 08/27/25 12:56 1 TAB Ondansetron HCl 4 mg Q4HP PRN IV 08/26/25 20:45 Acetaminophen 650 mg Q6HP PRN PO 08/26/25 20:45 Enoxaparin Sodium 40 mg DAILY SC 08/26/25 20:45 08/26/25 22:49 40 MG Hydromorphone HCl 0.25 mg Q4HPRN PRN IV 08/26/25 20:45 Ceftriaxone Sodium/Dextrose 50 ml @ 50 mls/hr DAILY IV 08/27/25 10:00 08/27/25 09:25 50 MLS/HR Diagnostic Test (Pha) 1 strip ACHS 08/26/25 22:00 08/27/25 11:30 1 STRIP Insulin Human Regular ACHS SC 08/26/25 22:00 08/27/25 11:30 2 UNITS Dextrose 50 ml UD PRN IV 08/26/25 20:45 Tamsulosin HCl 0.4 mg QPM PO 08/27/25 18:00 Laboratory Results Laboratory Tests 08/27/25 03:00 Chemistry Test 08/27/25 03:00 Albumin 4.0 g/dL (3.2-4.8) Calcium Level 8.7 mg/dL (8.7-10.4) Magnesium Level 2.0 mg/dL (1.6-2.6) Total Protein 6.6 g/dL (5.7-8.2) LFT Test 08/27/25 03:00 Alanine Aminotransferase (ALT) 18 U/L (7-40) Alkaline Phosphatase 50 U/L (46-116) Aspartate Amino Transferase (AST) 16 U/L (13-40) Total Bilirubin 0.5 mg/dL (0.2-1.0) HgA1c, TSH Test 08/27/25 03:00 Hemoglobin A1c 8.1 % A1C (<5.7) H Urinalysis Test 08/26/25 12:24 Urine Color Colorless (Yellow) Urine Clarity Turbid (Clear) H Urine pH 6.0 (5.0-9.0) Urine Specific [place] 1.007 (1.001-1.035) Urine Protein Trace (Negative) H Urine Ketones 1+ (Negative) H Urine Blood 3+ /uL (Negative) H Urine Nitrite 1+ (Negative) H Urine Bilirubin Negative (Negative) Urine Urobilinogen Normal mg/dL (Negative) Urine Leukocyte Esterase 3+ /uL (Negative) Urine RBC 12 /hpf (0 - 4) Urine WBC Clumps Present /hpf (None Seen) Urine Microscopic WBC 428 /HPF (0-5) H Urine Squamous Epithelial Cells Few /hpf (<5) Urine Bacteria None seen /hpf (None Seen) Urine Yeast (Budding) Occasional /hpf (None Urine Glucose Normal mg/dL (Normal) Microbiology Microbiology Date/Time Source Procedure Growth Status 08/26/25 12:24 Voided Urine Urine Culture - Preliminary Resulted Labs and/or images reviewed: Labs reviewed by me, Image(s) reviewed by me Assessment/Plan Assessment/Plan [place] [address] secondary to urinary tract infection Acute urinary tract infection: Blood cultures urine cultures Rocephin Acute pyelonephritis Gallstones: Rule out cholecystitis: HIDA scan pending Nonobstructing right kidney stones Acute lactic acidosis Fatty liver Type 2 diabetes Acute hypokalemia Time spent 65 minutes Advanced care planning time 20 minutes Patient is full code Plan discussed with: Patient Date of Service: Aug 27, 2025 Billing Provider: ADRIANNE RALPH MD Common Visit Codes: [id number] CARE 30-74 MIN ADRIANNE RALPH MD Aug 27, 2025 13:00
[2025-08-27] MEDS: TAMSULOSIN HYDROCHLORIDE 0.4 MG CAP PO SCH (18:00)
[2025-08-28] VITALS (7 sets, daily range): BP systolic 120–154; BP diastolic 71–95; PULSE 60–73; RESP 17–19; TEMP 96.6–98.4; O2SAT 93–98
--- NOTE | 2025-08-28 10:25 | DVHPN2 ---
Reviewed: Care Plan, H&P, Labs, Medications, Previous Orders, Radiology Changes from previous H/P or p: No Changes Eyes: No Pain, No Vision change, No Conjunctivae inflammation, No Eyelid inflammation, No Other, No Redness ENT: No Ear pain, No Ear discharge, No Nose pain, No Nose discharge, No Nose congestion, No Mouth pain, No Mouth swelling, No Throat pain, No Throat swelling, No Other Cardiovascular: No Chest Pain, No Palpitations, No Orthopnea, No Paroxysmal Noc. Dyspnea, No Edema, No Lt Headedness, No Other Respiratory: No Cough, No Dry, No Shortness of breath, No SOB with excertion, No Wheezing, No Hemoptysis, No Pleuritic Pain, No Sputum, No Other Gastrointestinal: Nausea, Vomiting, Abdominal Pain; No Diarrhea, No Constipation, No Melena, No Hematochezia, No Other Genitourinary: Dysuria, Frequency, Incontinence; No Hematuria, No Retention, No Other Musculoskeletal: No other, No neck pain, No shoulder pain, No arm pain, No back pain, No hand pain, No leg pain, No foot pain Skin: No Rash, No Lesions, No Jaundice, No Bruising, No Other Objective Vitals Vital Signs Date Time Temp Pulse Resp B/P (MAP) Pulse Ox O2 Delivery O2 Flow Rate FiO2 08/28/25 08:56 98.0 61 18 132/74 (93) 94 98.0 08/27/25 20:10 Room Air* 0 21 Intake/Output Intake and Output 08/28/25 07:00 Intake Total 450 ml Balance 450 ml Intake Oral 450 ml # Voids 7 # Bowel Movements 3 Medications Current Medications Medications Dose Ordered Sig/Theodore Route Start Time Stop Time Status Last Admin Dose Admin Acetaminophen/ Hydrocodone Bitart 1 tab Q4HP PRN PO 08/26/25 20:45 08/27/25 12:56 1 TAB Ondansetron HCl 4 mg Q4HP PRN IV 08/26/25 20:45 Acetaminophen 650 mg Q6HP PRN PO 08/26/25 20:45 Enoxaparin Sodium 40 mg DAILY SC 08/26/25 20:45 08/26/25 22:49 40 MG Hydromorphone HCl 0.25 mg Q4HPRN PRN IV 08/26/25 20:45 Ceftriaxone Sodium/Dextrose 50 ml @ 50 mls/hr DAILY IV 08/27/25 10:00 08/27/25 09:25 50 MLS/HR Diagnostic Test (Pha) 1 strip ACHS 08/26/25 22:00 08/28/25 06:04 1 STRIP Insulin Human Regular ACHS SC 08/26/25 22:00 08/28/25 06:04 3 UNITS Dextrose 50 ml UD PRN IV 08/26/25 20:45 Tamsulosin HCl 0.4 mg QPM PO 08/27/25 18:00 08/27/25 18:00 0.4 MG Laboratory Results Laboratory Tests 08/27/25 03:00 Urinalysis Test 08/26/25 12:24 Urine Color Colorless (Yellow) Urine Clarity Turbid (Clear) H Urine pH 6.0 (5.0-9.0) Urine Specific [place] 1.007 (1.001-1.035) Urine Protein Trace (Negative) H Urine Ketones 1+ (Negative) H Urine Blood 3+ /uL (Negative) H Urine Nitrite 1+ (Negative) H Urine Bilirubin Negative (Negative) Urine Urobilinogen Normal mg/dL (Negative) Urine Leukocyte Esterase 3+ /uL (Negative) Urine RBC 12 /hpf (0 - 4) Urine WBC Clumps Present /hpf (None Seen) Urine Microscopic WBC 428 /HPF (0-5) H Urine Squamous Epithelial Cells Few /hpf (<5) Urine Bacteria None seen /hpf (None Seen) Urine Yeast (Budding) Occasional /hpf (None Urine Glucose Normal mg/dL (Normal) Microbiology Microbiology Date/Time Source Procedure Growth Status 08/26/25 14:29 Blood Blood Culture - Preliminary NO GROWTH AFTER 24 HOURS OF INCUBATION. Resulted 08/26/25 12:24 Voided Urine Urine Culture - Final Escherichia coli Complete Labs and/or images reviewed: Labs reviewed by me, Image(s) reviewed by me Assessment/Plan Assessment/Plan [place] [address] secondary to urinary tract infection versus cholecystitis Acute urinary tract infection: Blood cultures negative, urine cultures growing E coli, continue Rocephin Acute pyelonephritis Right upper quadrant pain gallstones rule out cholecystitis HIDA scan pending, consult for Dr. Molina Nonobstructing right kidney stones Acute lactic acidosis Fatty liver Type 2 diabetes Acute hypokalemia Time spent 65 minutes Advanced care planning time 20 minutes Patient is full code Pts daughter Mirella [phone] at bedside and is the scrap worker Plan discussed with: Patient My Orders Orders - ADRIANNE RALPH MD Procedure Category Date Status Time Nm Hida Scan NM 08/27/25 Logged 13:00 Date of Service: Aug 28, 2025 Billing Provider: ADRIANNE RALPH MD Common Visit Codes: [id number] INP/OBS CARE(HIGH) ADRIANNE RALPH MD Aug 28, 2025 10:25
[2025-08-28 12:49] LABS: INR 0.97 (0.9-1.15); Partial Thromboplastin Time 27.3 SEC (24.5-34.5); Prothrombin Time 10.3 sec (9.3-11.8)
[2025-08-28] MEDS: SODIUM CHLORIDE 0.9% 1,000 ML IV ONE (23:17)
[2025-08-29] VITALS (8 sets, daily range): BP systolic 123–153; BP diastolic 73–88; PULSE 54–89; RESP 18–20; TEMP 97–98.5; O2SAT 93–98
--- NOTE | 2025-08-29 10:19 | DVHINCON2 ---
Consultation - Surgical Date Seen: Aug 29, 2025 Referring Physician Reason for Consultation RUQ pain gallstones possible cholecystitis History of Present Illness History of Present Illness 64 year old female Reports a two-day history of lower abdominal pain, described as sharp, rated 10/10 in severity, and radiating to the right upper quadrant and back. Associated symptoms included fever, chills, nausea, and one episode of non-bloody, watery emesis. Also reports increased urinary frequency and dysuria on admission. Currently, the abdominal pain has resolved. Denies current nausea. Has not eaten since the previous day. Acknowledges feeling hungry. Past Medical/Surgical History Past Medical/Surgical History diabetes type 2, internal hemorrhoids, bilateral tubal ligation, and right wrist tendon repair Family and Social History Family and Social History Family history: Reviewed, noncontributory to the management of this case Social history: Patient denies smoking, drinking alcohol or any other illicit drug abuse Allergies and medications Allergies: Coded Allergies: NO KNOWN ALLERGIES (Unverified , 01/30/19) Home Meds No Active Prescriptions or Reported Meds Review of systems Review of Systems: HEENT:Normal, CVS:Normal, RESPIRATORY:Normal, GI:Normal, :Normal, MSK:Normal, NEURO:Normal Examination Vital signs Vital Signs Date Time Temp Pulse Resp B/P (MAP) Pulse Ox O2 Delivery O2 Flow Rate FiO2 08/29/25 09:00 97.5 54 18 141/84 (103) 95 97.5 08/28/25 20:00 Room Air* 0 21 Laboratory Labs Test 08/29/25 06:21 08/28/25 11:54 08/27/25 03:00 08/26/25 22:40 Range/Units POC Glucose 132 H 70-106 mg/dl Prothrombin Time 10.3 9.3-11.8 sec Prothrombin Time INR 0.97 0.9-1.15 Activated Partial Thromboplast Time 27.3 24.5-34.5 SEC White Blood Count 12.2 H 4.4-10.8 10^3/uL Red Blood Count 3.88 L 4.0-5.20 10^6/uL Hemoglobin 11.9 L 12.2-16.2 g/dL Hematocrit 35.8 #L 36.0-46.0 % Mean Corpuscular Volume 92.4 80.0-100.0 fL Mean Corpuscular Hemoglobin 30.6 28.0-32.0 pg Mean Corpuscular Hemoglobin Concent 33.1 32.0-36.0 g/dL Red Cell Distribution Width 15.0 H 11.8-14.3 % Platelet Count 214 140-450 10^3/uL Mean Platelet Volume 8.5 6.9-10.8 fL Neutrophils (%) (Auto) 71.2 37.0-80.0 % Lymphocytes (%) (Auto) 22.0 10.0-50.0 % Monocytes (%) (Auto) 5.9 0.0-12.0 % Eosinophils (%) (Auto) 0.6 0.0-7.0 % Basophils (%) (Auto) 0.3 0.0-2.0 % Neutrophils # (Auto) 8.7 H 1.6-8.6 10 ^3/uL Lymphocytes # (Auto) 2.7 0.4-5.4 10 ^3/uL Monocytes # (Auto) 0.7 0-1.3 10 ^3/uL Eosinophils # (Auto) 0.1 0-0.8 10 ^3/uL Basophils # (Auto) 0 0-0.2 10 ^3/uL Nucleated Red Blood Cells 0.1 % Sodium Level 141 136-145 mmol/L Potassium Level 3.4 L 3.5-5.1 mmol/L Chloride Level 108 H 98-107 mmol/L Carbon Dioxide Level 24 20-31 mmol/L Anion Gap 9 5-15 Blood Urea Nitrogen 7 L 9-23 mg/dL Creatinine 0.55 0.550-1.02 mg/dL Glomerular Filtration Rate Calc 102 >90 mL/min BUN/Creatinine Ratio 12.7 10.0-20.0 Serum Glucose 153 H 74-106 mg/dL Hemoglobin A1c 8.1 H <5.7 % A1C Calcium Level 8.7 8.7-10.4 mg/dL Magnesium Level 2.0 1.6-2.6 mg/dL Total Bilirubin 0.5 0.2-1.0 mg/dL Aspartate Amino Transferase (AST) 16 13-40 U/L Alanine Aminotransferase (ALT) 18 7-40 U/L Alkaline Phosphatase 50 46-116 U/L Total Protein 6.6 5.7-8.2 g/dL Albumin 4.0 3.2-4.8 g/dL Lactic Acid Level 1.2 0.4-2.0 mmol/L Test 08/26/25 12:45 08/26/25 12:24 Range/Units Direct Bilirubin 0.2 <0.3 mg/dL Lipase 34 12-53 U/L Urine Color Colorless Yellow Urine Clarity Turbid H Clear Urine pH 6.0 5.0-9.0 Urine Specific [place] 1.007 1.001-1.035 Urine Protein Trace H Negative Urine Ketones 1+ H Negative Urine Blood 3+ H Negative /uL Urine Nitrite 1+ H Negative Urine Bilirubin Negative Negative Urine Urobilinogen Normal Negative mg/dL Urine Leukocyte Esterase 3+ Negative /uL Urine RBC 12 0 - 4 /hpf Urine WBC Clumps Present None Seen /hpf Urine Microscopic WBC 428 H 0-5 /HPF Urine Squamous Epithelial Cells Few <5 /hpf Urine Bacteria None seen None Seen /hpf Urine Yeast (Budding) Occasional None Seen /hpf Urine Glucose Normal Normal mg/dL Microbiology Date/Time Source Procedure Growth Status 08/26/25 14:29 Blood Blood Culture - Preliminary NO GROWTH AFTER 48 HOURS OF INCUBATION. Resulted 08/26/25 12:24 Voided Urine Urine Culture - Final Escherichia coli Complete Examination: GENERAL:Normal, HEENT:Normal, NECK:Normal, LUNGS:Normal, CVS:Norm al, ABDOMEN:Normal, MSK:Normal, SKIN:Normal, NEURO:Normal Problem List/Assessment/Plan Problems: (1) Gallstones (2) Right upper quadrant abdominal pain (3) Intractable abdominal pain Assessment and Plan - Physical Examination: - Abdomen is soft, non-tender to palpation. No guarding or rebound tenderness. - Assessment: - On admission to the emergency department, had an elevated respiratory rate of 20, a white blood cell count of 15, lactic acid of 2.1, and a urinalysis consistent with a urinary tract infection. A CT scan of the abdomen and pelvis showed non-obstructing right nephrolithiasis (6 mm stone in the right renal pelvis), ureter and bladder wall thickening, and a moderately distended gall bladder without calcified stones. Admitted for further workup. - Plan: - Currently pending a HIDA scan to evaluate gallbladder function. The plan is to await the results of the HIDA scan to guide further management. If the HIDA scan is negative and there is no recurrence of pain, surgical intervention (cholecystectomy) will not be necessary at this time. Plan discussed with Plan discussed with: Patient, Other (Dr. Molina ) Visit Coding Surgery Date of Service if different f: Aug 29, 2025 Billing Provider: JOSE L MOLINA MD Surgery Visit Codes: [id number] - INP CONSULT <80 MIN KARLA HUANG TREE WARDEN Aug 29, 2025 10:19
--- NOTE | 2025-08-29 12:35 | DVHPN2 ---
Reviewed: Care Plan, H&P, Labs, Medications, Previous Orders, Radiology Changes from previous H/P or p: No Changes Eyes: No Pain, No Vision change, No Conjunctivae inflammation, No Eyelid inflammation, No Other, No Redness ENT: No Ear pain, No Ear discharge, No Nose pain, No Nose discharge, No Nose congestion, No Mouth pain, No Mouth swelling, No Throat pain, No Throat swelling, No Other Cardiovascular: No Chest Pain, No Palpitations, No Orthopnea, No Paroxysmal Noc. Dyspnea, No Edema, No Lt Headedness, No Other Respiratory: No Cough, No Dry, No Shortness of breath, No SOB with excertion, No Wheezing, No Hemoptysis, No Pleuritic Pain, No Sputum, No Other Gastrointestinal: Nausea, Vomiting, Abdominal Pain; No Diarrhea, No Constipation, No Melena, No Hematochezia, No Other Genitourinary: Dysuria, Frequency, Incontinence; No Hematuria, No Retention, No Other Musculoskeletal: No other, No neck pain, No shoulder pain, No arm pain, No back pain, No hand pain, No leg pain, No foot pain Skin: No Rash, No Lesions, No Jaundice, No Bruising, No Other Objective Vitals Vital Signs Date Time Temp Pulse Resp B/P (MAP) Pulse Ox O2 Delivery O2 Flow Rate FiO2 08/29/25 09:00 97.5 54 18 141/84 (103) 95 97.5 08/29/25 08:00 Room Air* 0 21 Intake/Output Intake and Output 08/29/25 07:00 Intake Total 240 ml Balance 240 ml Intake Oral 240 ml # Voids 5 # Bowel Movements 2 Medications Current Medications Medications Dose Ordered Sig/Theodore Route Start Time Stop Time Status Last Admin Dose Admin Acetaminophen/ Hydrocodone Bitart 1 tab Q4HP PRN PO 08/26/25 20:45 08/27/25 12:56 1 TAB Ondansetron HCl 4 mg Q4HP PRN IV 08/26/25 20:45 Acetaminophen 650 mg Q6HP PRN PO 08/26/25 20:45 Enoxaparin Sodium 40 mg DAILY SC 08/26/25 20:45 08/28/25 10:00 40 MG Hydromorphone HCl 0.25 mg Q4HPRN PRN IV 08/26/25 20:45 Ceftriaxone Sodium/Dextrose 50 ml @ 50 mls/hr DAILY IV 08/27/25 10:00 08/29/25 09:03 50 MLS/HR Diagnostic Test (Pha) 1 strip ACHS 08/26/25 22:00 08/29/25 11:12 1 STRIP Insulin Human Regular ACHS SC 08/26/25 22:00 08/28/25 06:04 3 UNITS Dextrose 50 ml UD PRN IV 08/26/25 20:45 Tamsulosin HCl 0.4 mg QPM PO 08/27/25 18:00 08/28/25 18:23 0.4 MG Laboratory Results Laboratory Tests 08/27/25 03:00 Urinalysis Test 08/26/25 12:24 Urine Color Colorless (Yellow) Urine Clarity Turbid (Clear) H Urine pH 6.0 (5.0-9.0) Urine Specific [place] 1.007 (1.001-1.035) Urine Protein Trace (Negative) H Urine Ketones 1+ (Negative) H Urine Blood 3+ /uL (Negative) H Urine Nitrite 1+ (Negative) H Urine Bilirubin Negative (Negative) Urine Urobilinogen Normal mg/dL (Negative) Urine Leukocyte Esterase 3+ /uL (Negative) Urine RBC 12 /hpf (0 - 4) Urine WBC Clumps Present /hpf (None Seen) Urine Microscopic WBC 428 /HPF (0-5) H Urine Squamous Epithelial Cells Few /hpf (<5) Urine Bacteria None seen /hpf (None Seen) Urine Yeast (Budding) Occasional /hpf (None Urine Glucose Normal mg/dL (Normal) Microbiology Microbiology Date/Time Source Procedure Growth Status 08/26/25 14:29 Blood Blood Culture - Preliminary NO GROWTH AFTER 48 HOURS OF INCUBATION. Resulted 08/26/25 12:24 Voided Urine Urine Culture - Final Escherichia coli Complete Labs and/or images reviewed: Labs reviewed by me, Image(s) reviewed by me Assessment/Plan Assessment/Plan [place] [address] secondary to urinary tract infection versus cholecystitis Acute urinary tract infection: Blood cultures negative, urine cultures growing E coli, continue Rocephin Acute pyelonephritis Right upper quadrant pain gallstones rule out cholecystitis HIDA scan pending, consult for Dr. Molina appreciated Nonobstructing right kidney stones Acute lactic acidosis Fatty liver Type 2 diabetes Acute hypokalemia Time spent 55 minutes Advanced care planning time 20 minutes Patient is full code Pts daughter Mirella [phone] at bedside and is the credit and collection manager Plan discussed with: Patient My Orders Orders - ADRIANNE RALPH MD Procedure Category Date Status Time Npo (Nothing By DIET 08/28/25 Transmitted Mouth) Diet Dinner Date of Service: Aug 29, 2025 Billing Provider: ADRIANNE RALPH MD Common Visit Codes: [id number] INP/OBS CARE(HIGH) ADRIANNE RALPH MD Aug 29, 2025 12:35
[2025-08-29] MEDS: LACTATED RINGER'S 1,000 ML IV SCH (13:00)
--- NOTE | 2025-08-29 16:57 | DVH ---
Procedure: MT NM HIDA SCAN Exam Date: 08/29/2025 01:21 PM Clinical History: Cholelithiasis, rule out cholecystitis Comparison Study: None Nuclear Medicine Hepatobiliary Scan. Technique: Following the intravenous administration of 6 mCi of technetium 99m labeled Choletec multiple planar abdominal planar images were obtained in anterior projection in 5 minute intervals for45 minutes . Right lateral images were obtained at 45 minutes after injection. Findings: The liver appears grossly normal in size. There is no abnormal persistence of the cardiac or blood pool activity. There is prompt visualization of the gallbladder . There is delay in passage into the bowel with activity seen on the 4 hour delayed films Impression: 1. No evidence of cystic duct obstruction suggesting absence of acute cholecystitis. There is delay in emptying of the common bile duct although the absence of biliary dilatation on CT and ultrasound studies suggests this may be physiologic
[2025-08-30 01:00] VITALS: BP 130/84; PULSE 81; RESP 18; TEMP 98.5; O2SAT 95
[2025-08-30 05:00] VITALS: BP 129/74; PULSE 75; RESP 18; TEMP 98; O2SAT 94
--- NOTE | 2025-08-30 08:42 | DVHPN2 ---
Reviewed: Care Plan, H&P, Labs, Medications, Previous Orders, Radiology Changes from previous H/P or p: No Changes Eyes: No Pain, No Vision change, No Conjunctivae inflammation, No Eyelid inflammation, No Other, No Redness ENT: No Ear pain, No Ear discharge, No Nose pain, No Nose discharge, No Nose congestion, No Mouth pain, No Mouth swelling, No Throat pain, No Throat swelling, No Other Cardiovascular: No Chest Pain, No Palpitations, No Orthopnea, No Paroxysmal Noc. Dyspnea, No Edema, No Lt Headedness, No Other Respiratory: No Cough, No Dry, No Shortness of breath, No SOB with excertion, No Wheezing, No Hemoptysis, No Pleuritic Pain, No Sputum, No Other Gastrointestinal: Nausea, Vomiting, Abdominal Pain; No Diarrhea, No Constipation, No Melena, No Hematochezia, No Other Genitourinary: Dysuria, Frequency, Incontinence; No Hematuria, No Retention, No Other Musculoskeletal: No other, No neck pain, No shoulder pain, No arm pain, No back pain, No hand pain, No leg pain, No foot pain Skin: No Rash, No Lesions, No Jaundice, No Bruising, No Other Objective Vitals Vital Signs Date Time Temp Pulse Resp B/P (MAP) Pulse Ox O2 Delivery O2 Flow Rate FiO2 08/30/25 05:00 98.0 75 18 129/74 (92) 94 98.0 08/29/25 20:00 Room Air* 0 21 Intake/Output Intake and Output 08/30/25 07:00 Intake Total 925 ml Balance 925 ml Intake Oral 875 ml IV Total 50 ml # Voids 4 Medications Current Medications Medications Dose Ordered Sig/Theodore Route Start Time Stop Time Status Last Admin Dose Admin Acetaminophen/ Hydrocodone Bitart 1 tab Q4HP PRN PO 08/26/25 20:45 08/27/25 12:56 1 TAB Ondansetron HCl 4 mg Q4HP PRN IV 08/26/25 20:45 Acetaminophen 650 mg Q6HP PRN PO 08/26/25 20:45 Enoxaparin Sodium 40 mg DAILY SC 08/26/25 20:45 08/28/25 10:00 40 MG Hydromorphone HCl 0.25 mg Q4HPRN PRN IV 08/26/25 20:45 Ceftriaxone Sodium/Dextrose 50 ml @ 50 mls/hr DAILY IV 08/27/25 10:00 08/29/25 09:03 50 MLS/HR Diagnostic Test (Pha) 1 strip ACHS 08/26/25 22:00 08/30/25 06:10 1 STRIP Insulin Human Regular ACHS SC 08/26/25 22:00 08/30/25 06:12 3 UNITS Dextrose 50 ml UD PRN IV 08/26/25 20:45 Tamsulosin HCl 0.4 mg QPM PO 08/27/25 18:00 08/29/25 17:10 0.4 MG Lactated Ringer's 1,000 ml @ 125 mls/hr Q8H IV 08/29/25 12:45 08/29/25 13:00 125 MLS/HR Laboratory Results Laboratory Tests 08/27/25 03:00 Urinalysis Test 08/26/25 12:24 Urine Color Colorless (Yellow) Urine Clarity Turbid (Clear) H Urine pH 6.0 (5.0-9.0) Urine Specific [place] 1.007 (1.001-1.035) Urine Protein Trace (Negative) H Urine Ketones 1+ (Negative) H Urine Blood 3+ /uL (Negative) H Urine Nitrite 1+ (Negative) H Urine Bilirubin Negative (Negative) Urine Urobilinogen Normal mg/dL (Negative) Urine Leukocyte Esterase 3+ /uL (Negative) Urine RBC 12 /hpf (0 - 4) Urine WBC Clumps Present /hpf (None Seen) Urine Microscopic WBC 428 /HPF (0-5) H Urine Squamous Epithelial Cells Few /hpf (<5) Urine Bacteria None seen /hpf (None Seen) Urine Yeast (Budding) Occasional /hpf (None Urine Glucose Normal mg/dL (Normal) Microbiology Microbiology Date/Time Source Procedure Growth Status 08/26/25 14:29 Blood Blood Culture - Preliminary NO GROWTH AFTER 72 HOURS OF INCUBATION. Resulted 08/26/25 12:24 Voided Urine Urine Culture - Final Escherichia coli Complete Labs and/or images reviewed: Labs reviewed by me, Image(s) reviewed by me Assessment/Plan Assessment/Plan [place] [address] secondary to urinary tract infection Acute urinary tract infection: Blood cultures negative, urine cultures growing E coli, continue Rocephin Acute pyelonephritis Right upper quadrant pain gallstones acute cholecystitis ruled out by negative HIDA scan, consult for Dr. Molina appreciated Nonobstructing right kidney stones Acute lactic acidosis Fatty liver Type 2 diabetes Acute hypokalemia Time spent 55 minutes Advanced care planning time 20 minutes Patient is full code Pts daughter Mirella [phone] at bedside and is the book repairer Plan discussed with: Patient My Orders Orders - ADRIANNE RALPH MD Procedure Category Date Status Time Lactated Ringer's PHA 08/29/25 In Process 12:45 Consistent DIET 08/29/25 Transmitted Carb(Ccho)Diabetes Dinner Date of Service: Aug 30, 2025 Billing Provider: ADRIANNE RALPH MD Common Visit Codes: [id number] INP/OBS CARE(HIGH) ADRIANNE RALPH MD Aug 30, 2025 08:42
[2025-08-30] MEDS ORDERED: CIPR-173 PO (08:45)
--- NOTE | 2025-08-30 08:48 | DVHDS2 ---
Discharge Summary Date of Admission Aug 26, 2025 at 20:43 Date of Discharge: Aug 30, 2025 Admitting Diagnosis Generalized weakness and altered mental status Wounds: None Labs/Diagnostic Data: Laboratory Results Test 08/30/25 06:08 08/28/25 11:54 08/27/25 03:00 08/26/25 22:40 POC Glucose 170 mg/dl (70-106) Prothrombin Time 10.3 sec (9.3-11.8) Prothrombin Time INR 0.97 (0.9-1.15) Activated Partial Thromboplast Time 27.3 SEC (24.5-34.5) White Blood Count 12.2 10^3/uL (4.4-10.8) Red Blood Count 3.88 10^6/uL (4.0-5.20) Hemoglobin 11.9 g/dL (12.2-16.2) Hematocrit 35.8 % (36.0-46.0) Mean Corpuscular Volume 92.4 fL (80.0-100.0) Mean Corpuscular Hemoglobin 30.6 pg (28.0-32.0) Mean Corpuscular Hemoglobin Concent 33.1 g/dL (32.0-36.0) Red Cell Distribution Width 15.0 % (11.8-14.3) Platelet Count 214 10^3/uL (140-450) Mean Platelet Volume 8.5 fL (6.9-10.8) Neutrophils (%) (Auto) 71.2 % (37.0-80.0) Lymphocytes (%) (Auto) 22.0 % (10.0-50.0) Monocytes (%) (Auto) 5.9 % (0.0-12.0) Eosinophils (%) (Auto) 0.6 % (0.0-7.0) Basophils (%) (Auto) 0.3 % (0.0-2.0) Neutrophils # (Auto) 8.7 10 ^3/uL (1.6-8.6) Lymphocytes # (Auto) 2.7 10 ^3/uL (0.4-5.4) Monocytes # (Auto) 0.7 10 ^3/uL (0-1.3) Eosinophils # (Auto) 0.1 10 ^3/uL (0-0.8) Basophils # (Auto) 0 10 ^3/uL (0-0.2) Nucleated Red Blood Cells 0.1 % Sodium Level 141 mmol/L (136-145) Potassium Level 3.4 mmol/L (3.5-5.1) Chloride Level 108 mmol/L (98-107) Carbon Dioxide Level 24 mmol/L (20-31) Anion Gap 9 (5-15) Blood Urea Nitrogen 7 mg/dL (9-23) Creatinine 0.55 mg/dL (0.550-1.02) Glomerular Filtration Rate Calc 102 mL/min (>90) BUN/Creatinine Ratio 12.7 (10.0-20.0) Serum Glucose 153 mg/dL (74-106) Hemoglobin A1c 8.1 % A1C (<5.7) Calcium Level 8.7 mg/dL (8.7-10.4) Magnesium Level 2.0 mg/dL (1.6-2.6) Total Bilirubin 0.5 mg/dL (0.2-1.0) Aspartate Amino Transferase (AST) 16 U/L (13-40) Alanine Aminotransferase (ALT) 18 U/L (7-40) Alkaline Phosphatase 50 U/L (46-116) Total Protein 6.6 g/dL (5.7-8.2) Albumin 4.0 g/dL (3.2-4.8) Lactic Acid Level 1.2 mmol/L (0.4-2.0) Test 08/26/25 12:45 08/26/25 12:24 Direct Bilirubin 0.2 mg/dL (<0.3) Lipase 34 U/L (12-53) Urine Color Colorless (Yellow) Urine Clarity Turbid (Clear) Urine pH 6.0 (5.0-9.0) Urine Specific [place] 1.007 (1.001-1.035) Urine Protein Trace (Negative) Urine Ketones 1+ (Negative) Urine Blood 3+ /uL (Negative) Urine Nitrite 1+ (Negative) Urine Bilirubin Negative (Negative) Urine Urobilinogen Normal mg/dL (Negative) Urine Leukocyte Esterase 3+ /uL (Negative) Urine RBC 12 /hpf (0 - 4) Urine WBC Clumps Present /hpf (None Seen) Urine Microscopic WBC 428 /HPF (0-5) Urine Squamous Epithelial Cells Few /hpf (<5) Urine Bacteria None seen /hpf (None Seen) Urine Yeast (Budding) Occasional /hpf (None Urine Glucose Normal mg/dL (Normal) Other Laboratory Tests 08/27/25 03:00 Brief Hx & Hospital Course: 64-year-old female with a history of diabetes came in complaining of generalized weakness and diffuse abdominal [place] [address] found to have urinary tract infection. Treated with the IV Rocephin urine cultures grew E coli sensitive to Rocephin and Cipro patient also had a gallstones by CT abdomen pelvis without contrast HIDA scan was negative for acute cholecystitis seen by surgeon . No Indication for cholecystectomy. At the time of discharge, patient is tolerating regular diet afebrile stable vital signs discharged home on Cipro for UTI and pyelonephritis. She will follow up with the primary and with Dr Molina for elective cholecystectomy Consults/Reason for consult Surgeon Dr. Molina Operations or Procedures CT abdomen pelvis without contrast HIDA scan Condition at Discharge: Fair Final Diagnosis/Problems List [place] [address] secondary to urinary tract infection versus cholecystitis Acute urinary tract infection: Blood cultures negative, urine cultures growing E coli, continue Rocephin Acute pyelonephritis Right upper quadrant pain gallstones rule out cholecystitis HIDA scan pending, consult for Dr. Molina appreciated Nonobstructing right kidney stones Acute lactic acidosis Fatty liver Type 2 diabetes Acute hypokalemia Discharge Disposition: Home Discharge Instruct/Medications Diet: Consistent carbohydrate Activity: Light activity Follow Up/Referral: Follow up with the primary in one week Resume all previous home meds Medications: Cipro 500 mg p.o. b.i.d. for 10 days Transmitted to pharmacy Scheduled Ciprofloxacin Hcl (Cipro), 1 TAB PO BID 39 (Time taken for discharge summary 39 minutes) Discharge Statement: "Patient was advised to return to the ER or call 911 if any headaches, dizziness, shortness of breath, chest pain, abdominal pain, bleeding, fevers, or worsening of medical condition. Patient was counseled about treatment plan, medications, possible side effects, patientverbalized understanding. All questions were answered to the best of my ability. This discharge took greater then 30 minutes in planning, reviewing documentation, counseling the patient, and discussing with other team members." ASSESSMENT ASSESSMENT Hospital Course Improved Assessment [place] [address] secondary to urinary tract infection versus cholecystitis Acute urinary tract infection: Blood cultures negative, urine cultures growing E coli, continue Rocephin Acute pyelonephritis Right upper quadrant pain gallstones rule out cholecystitis HIDA scan pending, consult for Dr. Molina appreciated Nonobstructing right kidney stones Acute lactic acidosis Fatty liver Type 2 diabetes Acute hypokalemia Date of Service: Aug 30, 2025 Billing Provider: ADRIANNE RALPH MD Common Visit Codes: [id number] DISCH DAY >30min ADRIANNE RALPH MD Aug 30, 2025 08:48
[2025-08-30 09:00] VITALS: BP 136/76; PULSE 59; RESP 18; TEMP 97.3; O2SAT 99
== END 2025-08-30 10:58 | disposition home or self-care (01) | DRG 872 ==
LOC: ER 10:59 → OVERFLOW 20:43 → EAST 21:01
PROVIDERS: ADMIT Family Medicine; ATTEND Family Medicine
DX: A41.51 Sepsis due to Escherichia coli [E. coli] (principal); E87.21 Acute metabolic acidosis; N10 Acute pyelonephritis; E11.9 Type 2 diabetes mellitus without complications; E87.6 Hypokalemia; K76.0 Fatty (change of) liver, not elsewhere classified; N20.0 Calculus of kidney; K82.8 Other specified diseases of gallbladder; K80.20 Calculus of gallbladder without cholecystitis without obstruction; Z98.51 Tubal ligation status; Z82.49 Family history of ischemic heart disease and other diseases of the circulatory system; Z80.9 Family history of malignant neoplasm, unspecified; Z79.84 Long term (current) use of oral hypoglycemic drugs; Z79.899 Other long term (current) drug therapy
CPT/HCPCS: 36415; 71045; 74018; 74176; 76705; 78226; 80048; 80053; 80076; 81001; 82962; 83036; 83605; 83690; 83735; 85025; 85610; 85730; 87040; 87086; 87088; 87186; 96365; 96375; G0378; J1815; J1885; Q0162